=== PATIENT | female | born 1965 | race African-American/Black ===

== ENCOUNTER 2023-09-16 09:51 | Emergency (ER) | payer MEDICARE, MEDICAID ==
[~2023-09-16] VITALS: Ht 160 cm; Wt 76.6 kg
[~2023-09-16 09:51] MED LIST: ASPI81CH43 PO; ATOR20TA50 PO; ENAL1TAB42 PO; GABA800T97 PO; HYDR-531 PO; NIFE1TAB31 PO; PANT40T PO; PROZAC PO; QUET25TA37; TIZA4TAB9 PO
[2023-09-16] MEDS: LACTATED RINGER'S 2,000 ML IV ONE (11:22)
[2023-09-16 11:23] VITALS: BP 110/70; TEMP 97.9
[2023-09-16 11:26] VITALS: PULSE 75; RESP 18; O2SAT 99
[2023-09-16 11:28] LABS: Amphetamine Screen, Urine Neg (NEGATIVE)
[2023-09-16 11:29] LABS: Barbiturate Scree,Urine Neg (NEGATIVE); Benzodiazephine Screen, Urine Neg (NEGATIVE); Cannabinoid Screen, Urine Neg (NEGATIVE); Cocaine Screen, Urine Pos (NEGATIVE); Opiate Scree,Urine Neg (NEGATIVE); Phencyclidine Screen, Urine Neg (NEGATIVE)
[2023-09-16 11:30] LABS: Basophils # (auto) 0.1 10 ^3/uL (0-0.2); Basophils % (auto) 0.5 % (0.0-2.0); Eosinophils # (auto) 0 10 ^3/uL (0-0.8); Eosinophils % (auto) 0.1 % (0.0-7.0); Hematocrit 36.8 % (36.0-46.0); Hemoglobin 11.4 g/dL (12.2-16.2); Lymphocytes # (auto) 1.7 10 ^3/uL (0.4-5.4); Lymphocytes % (auto) 14.6 % (10.0-50.0); Mean Corpuscular Hemoglobin 27.2 pg (28.0-32.0); Mean Corpuscular Hgb Conc. 31.1 g/dL (32.0-36.0); Mean Corpuscular Volume 87.5 fL (80.0-100.0); Monocytes # (auto) 0.4 10 ^3/uL (0-1.3); Monocytes % (auto) 3.4 % (0.0-12.0); Neutrophils # (auto) 9.7 10 ^3/uL (1.6-8.6); Neutrophils % (auto) 81.4 % (37.0-80.0); Nucleated Red Blood Cells % 0.1 %; White Blood Cell 11.9 10^3/uL (4.4-10.8)
[2023-09-16 11:41] LABS: Urine Bacteria NONE SEEN /hpf (None Seen); Urine Blood Negative /uL (Negative); Urine Clarity Clear (Clear); Urine Color Colorless (Yellow); Urine Protein, UAD 1+ (Negative); Urine Specific Gravity 1.025 (1.001-1.035); Urine Urobilinogen Normal (Negative); Urine WBC 2 /hpf (0 - 5)
[2023-09-16 11:55] LABS: Alanine Aminotransferase 34 U/L (7-40); Albumin 4.2 g/dL (3.2-4.8); Alkaline Phosphatase 110 U/L (46-116); Anion Gap 8 (5-15); Aspartate Aminotransferase 64 U/L (13-40); BUN/Creatinine Ratio 16.3 (10.0-20.0); Blood Urea Nitrogen 13 mg/dL (9-23); Calcium 8.7 mg/dL (8.7-10.4); Carbon Dioxide 21 mmol/L (20-30); Chloride 110 mmol/L (98-107); Glucose 161 mg/dL (74-106); Magnesium 1.8 mg/dL (1.6-2.6); Potassium 4.3 mmol/L (3.5-5.1); Sodium 139 mmol/L (136-145)
[2023-09-16 11:56] LABS: Bilirubin, Total 0.4 mg/dL (0.2-1.0); Total Protein 6.5 g/dL (5.7-8.2)
== END 2023-09-16 12:35 | disposition home or self-care (01) ==
LOC: ER 09:51
DX: E11.9 Type 2 diabetes mellitus without complications (principal); R53.1 Weakness; R42 Dizziness and giddiness; F14.90 Cocaine use, unspecified, uncomplicated; J45.909 Unspecified asthma, uncomplicated; I10 Essential (primary) hypertension; K21.9 Gastro-esophageal reflux disease without esophagitis; E78.5 Hyperlipidemia, unspecified; F17.200 Nicotine dependence, unspecified, uncomplicated; Z91.041 Radiographic dye allergy status; Z79.899 Other long term (current) drug therapy; Z88.8 Allergy status to other drugs, medicaments and biological substances
CPT/HCPCS: 36415; 80053; 80307; 81001; 82010; 82962; 83735; 85025; 93005; 96360

== ENCOUNTER 2025-03-18 09:23 | Inpatient (IN) | payer MEDICARE, MEDICAID ==
[~2025-03-18] VITALS: Ht 160 cm; Wt 71.6 kg
--- NOTE | 2025-03-18 10:56 | ED.PDOC ---
GI ASSESSMENT HPI Comments This is a 59 year old female ELISEO presenting to the ED with chief complaint of abdominal pain. Patient reports that she has been experiencing RUQ abdominal pain since this morning. Patient relays that her pain is a 10/10 at this time. Patient denies any N/V/D, fever, chills, dizziness, or chest pain. Chief Complaint: Abdominal Pain Time Seen by MD: 10:54 Primary Care Provider: OUT OF AREA ([facility] Reviewed Notes: Nurses Notes, Hat Copyist Notes, Medications, Allergies Allergies: Coded Allergies: Iodine (Verified Allergy, Unknown, 02/04/18) Morphine (Verified Allergy, Unknown, 03/18/25) Penicillins (Verified Allergy, Unknown, 03/18/25) Home Meds Active Scripts Aspirin (Asa) 81 Mg Ch, 81 MG PO DAILY, #30 Prov:YANDEL HERNANDEZ MD 02/06/18 Atorvastatin Calcium (ATORVASTATIN CALCIUM) 20 Mg Tab, 10 MG PO HS, #30 TAB Prov:YANDEL HERNANDEZ MD 02/06/18 Pantoprazole Sodium Sesquihydr (Pantoprazole Sodium) 40 Mg Tab, 40 MG PO DAILY, #30 TAB Prov:YANDEL HERNANDEZ MD 02/06/18 Reported Medications Hydrocodone-Acetaminophen (Kiefer 10-325 mg) 1 Tab Tab, 2 TAB PO PRN, TAB 02/04/18 Tizanidine Hydrochloride (Zanaflex) 4 Mg Tab, 2 TAB PO TID, #90 TAB 02/04/18 Enalapril Maleate (Enalapril Maleate) 2.5 Mg Tab, 2.5 MG PO DAILY for 30 Days, MG 02/03/18 Nifedipine (Nifedipine Er) 30 Mg Tab, 1 TAB PO BID, #90 TAB 3 Refills 02/03/18 Gabapentin (Gabapentin) 800 Mg Tab, 800 MG PO BID, TAB 02/03/18 [Prozac] No Conflict Check, 20 MG PO DAILY 12/05/10 Quetiapine Fumerate (Seroquel) 25 Mg Tab, HS 12/05/10 Information Source: Patient, Emergency Med Personnel Mode of Arrival: EMS Timing: Hours Duration: Since onset Prehospital treatment: None Quality: Sharp Vomitus: None Stool: Normal Severity: Moderate Recent: None Recent Hx of: None Pain Location: RUQ Modifying Factors: Nothing Associated sign and symptoms: Abdominal Pain Past Medical History PAST MEDICAL HISTORY: Asthma, DM, GERD, High Lipids, HTN Surgical History: Denies all surgeries 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 Family History Family History: No family hx of DM, No family hx of Heart ugo Social History Smoker: Less Than 1 Pack/Day Alcohol: Occasionally Drugs: Denies Drug Use Lives In: Home Constitutional: denies: chills, diaphoresis, fatigue, fever, malaise, sweats, weakness, others EENTM: denies: blurred vision, double vision, ear bleeding, ear discharge, ear drainage, ear pain, ear ringing, eye pain, eye redness, hearing loss, mouth pain, mouth swelling, nasal discharge, nose bleeding, nose congestion, nose pain, photophobia, tearing, throat pain, throat swelling, voice changes, others Respiratory: denies: cough, hemoptysis, orthopnea, SOB at rest, shortness of breath, SOB with excertion, stridor, wheezing, others Cardiovascular: denies: chest pain, dizzy spells, diaphoresis, Dyspnea on exertion, edema, irregular heart beat, left arm pain, lightheadedness, palpitations, PND, syncope, others Gastrointestinal: reports: abdominal pain; denies: abdomen distended, blood streaked bowels, constipated, diarrhea, dysphagia, difficulty swallowing, hematemesis, melena, nausea, poor appetite, poor fluid intake, rectal bleeding, rectal pain, vomiting, others Genitourinary: denies: abnormal vagina bleeding, burning, dyspareunia, dysuria, flank pain, frequency, hematuria, incontinence, pain, , vagina discharge, urgency, others Neurological: denies: dizziness, fainting, headache, left sided numbness, left sided weakness, numbness, paresthesia, pre-existing deficit, right sided numbness, right sided weakness, seizure, speech problems, tingling, tremors, weakness, others Musculoskeletal: denies: back pain, gout, joint pain, joint swelling, muscle pain, muscle stiffness, neck pain, others Integumetry: denies: bruises, change in color, change in hair/nails, dryness, laceration, lesions, lumps, rash, wounds, others Allergic/Immunocompromised: denies: Difficulty Healing, Frequent Infections, Hives, Itching, others Hematologic/Lymphatic: denies: anemia, blood clots, easy bleeding, easy bruising, swollen glands, others Endocrine: denies: excessive hunger, excessive sweating, excessive thirst, excessive urination, flushing, intolerance to cold, intolerance to heat, unexplained weight gain, unexplained weight loss, others Psychiatric: denies: anxiety, bipolar disorder, depression, hopeless, panic disorder, schizophrenia, sleepless, suicidal, others All Other Systems: Reviewed and Negative Physical Exam General Appearance: No Apparent Distress, Obese, Severe Distress HEENT: Normal ENT Inspection, PERRL/EOMI, Pharynx Normal, TMs Normal Neck: Full Range of Motion, Non-Tender, Normal, Normal Inspection Respiratory: Chest Non-Tender, Lungs Clear, No Accessory Muscle Use, No Respiratory Distress, Normal Breath Sounds Cardiovascular: No Edema, No JVD, No Murmur, No Gallop, Normal Peripheral Pulses, Regular Rate/Rhythm Breast Exam: Deferred Gastrointestinal: Diffuse, Distended, Epigastric, No Organomegaly, No Pulsatile Mass, Normal Bowel Sounds, RUQ, Soft, Tenderness (RUQ) Genitalia: Deferred Pelvic: Deferred Rectal: Deferred Extremities: No calf tenderness, Normal capillary refill, Normal inspection, Normal range of motion, Non-tender, No pedal edema Musculoskeletal : Apperance: Normal Neurologic: Alert, java front end web developer II-XII nml as Tested, No Motor Deficits, Normal Affect, Normal Mood, No Sensory Deficits Cerebellar Function: Normal Reflexes: Normal Skin: Dry, Normal Color, Warm Peripheral Pulses: 1+ carotid (R), 1+ carotid (L) Lymphatic: No Adenopathy EKG EKG : Pulse Rate (adult): 92 [place]: Normal Cardiac Rhythm: NSR Hypertrophy: LAE Was a procedure done? Was a procedure done?: No GI differential Dx Differential Diagnosis: Appendicitis, Cholecystitis, Constipation, Diverticular disease, Gastritis/PUD, Gastroenteritis, Inflammatory BD, Ischemic Bowel, Pancreatitis, UTI, Urolithiasis, Dehydration, Diabetes/ DKA, Drug toxicity, Electrolyte Imbalance, Renal Failure, Mass, Anemia X-Ray, Labs, Meds, VS Vital Signs Date Time Temp Pulse Resp B/P (MAP) Pulse Ox O2 Delivery O2 Flow Rate FiO2 03/18/25 12:08 98 20 175/114 03/18/25 11:41 92 03/18/25 10:05 100 16 182/94 (123) 100 03/18/25 09:28 92 9/3/25 09:23 98.1 97 21 176/105 98 98.1 Lab Test 03/18/25 12:06 03/18/25 11:42 Range/Units Urine Color Light-yellow Yellow Urine Clarity Clear Clear Urine pH 7.0 5.0-9.0 Urine Specific [place] 1.021 1.001-1.035 Urine Protein 1+ H Negative Urine Ketones 3+ H Negative Urine Blood Negative Negative /uL Urine Nitrite Negative Negative Urine Bilirubin Negative Negative Urine Urobilinogen Normal Negative mg/dL Urine Leukocyte Esterase Negative Negative /uL Urine RBC 1 0 - 4 /hpf Urine Microscopic WBC < 1 0-5 /HPF Urine Squamous Epithelial Cells Few <5 /hpf Urine Bacteria None seen None Seen /hpf Urine Yeast (Budding) Occasional None Seen /hpf Urine Glucose 3+ H Normal mg/dL White Blood Count 11.1 H 4.4-10.8 10^3/uL Red Blood Count 5.03 4.0-5.20 10^6/uL Hemoglobin 13.6 12.2-16.2 g/dL Hematocrit 42.1 36.0-46.0 % Mean Corpuscular Volume 83.7 80.0-100.0 fL Mean Corpuscular Hemoglobin 26.9 L 28.0-32.0 pg Mean Corpuscular Hemoglobin Concent 32.2 32.0-36.0 g/dL Red Cell Distribution Width 15.0 H 11.8-14.3 % Platelet Count 375 140-450 10^3/uL Mean Platelet Volume 9.6 6.9-10.8 fL Neutrophils (%) (Auto) 69.5 37.0-80.0 % Lymphocytes (%) (Auto) 22.3 10.0-50.0 % Monocytes (%) (Auto) 7.5 0.0-12.0 % Eosinophils (%) (Auto) 0.1 0.0-7.0 % Basophils (%) (Auto) 0.6 0.0-2.0 % Neutrophils # (Auto) 7.7 1.6-8.6 10 ^3/uL Lymphocytes # (Auto) 2.5 0.4-5.4 10 ^3/uL Monocytes # (Auto) 0.8 0-1.3 10 ^3/uL Eosinophils # (Auto) 0 0-0.8 10 ^3/uL Basophils # (Auto) 0.1 0-0.2 10 ^3/uL Nucleated Red Blood Cells 0.1 % Sodium Level 132 L 136-145 mmol/L Potassium Level 3.3 L 3.5-5.1 mmol/L Chloride Level 93 L 98-107 mmol/L Carbon Dioxide Level 24 20-31 mmol/L Anion Gap 15 5-15 Blood Urea Nitrogen 15 9-23 mg/dL Creatinine 1.13 H 0.550-1.02 mg/dL Glomerular Filtration Rate Calc 55 >90 mL/min BUN/Creatinine Ratio 13.3 10.0-20.0 Serum Glucose 295 H 74-106 mg/dL Calcium Level 10.6 H 8.7-10.4 mg/dL Magnesium Level 1.5 L 1.6-2.6 mg/dL Total Bilirubin 1.6 H 0.2-1.0 mg/dL Aspartate Amino Transferase (AST) 22 13-40 U/L Alanine Aminotransferase (ALT) 15 7-40 U/L Alkaline Phosphatase 131 H 46-116 U/L Total Protein 8.6 H 5.7-8.2 g/dL Albumin 5.2 H 3.2-4.8 g/dL Lipase 38 12-53 U/L Current Medications Medications (Trade) Dose Ordered Sig/Arian Route Start Time Stop Time Status Last Admin Metoclopramide HCl (Reglan Injection) 10 mg ONCE ONCE IV 03/18/25 11:00 03/18/25 11:01 DC 03/18/25 12:03 Sodium Chloride 500 ml @ 500 mls/hr Q1H ONCE IVB 03/18/25 11:00 03/18/25 11:59 DC 03/18/25 12:08 Hydromorphone HCl (Dilaudid Injection) 1 mg ONCE ONCE IV 03/18/25 11:00 03/18/25 11:01 DC 03/18/25 12:08 X-Ray, Labs, Meds, VS Comment SEEN IN THE EMERGENCY DEPARTMENT EVENTFUL PATIENT CAME IN WITH SEVERE ABDOMINAL PAIN BLOOD PRESSURE 176/105 CHEST X-RAY IS NORMAL EKG SHOWS NORMAL SINUS RHYTHM AT 92 WITH LEFT ATRIAL ENLARGEMENT CBC 00859 WITH 69.5% NEUTROPHILS URINE SHOWS 3+ GLUCOSE CMP POTASSIUM IS 3.3 BLOOD SUGAR 295 MAGNESIUM 1.5 LIPASE 3.8 PATIENT WILL BE ADMITTED FOR FURTHER CARE PATIENT DID NOT HAVE AN ID CONTRAST BECAUSE SHE IS ALLERGIC TO IODINE BUT THE RADIOLOGIST IS RECOMMENDING IV CONTRAST FOR THE LIVER Time of 1ST Reevaluation: 11:54 Reevaluation 1ST: Unchanged Time of 2ND Reevaluation: 14:38 Reevaluation 2ND: Unchanged Patient Education/Counseling: Diagnosis, Treatment, Prognosis Family Education/Counseling: Diagnosis, Treatment, Prognosis, No Family Present SEPSIS Sepsis Screen Date sepsis recognized/suspect: Mar 18, 2025 Time Sepsis recognized/suspect: 953 Recent Procedure: No On Antibiotic Therapy: No Respiratory Rate >20: No Heart Rate >90: Yes Temp<36 C (96.8 F) or >38.3 C: No SBP <90 or MAP <65 mmHG: No New Acute Mental Status Change: No Is the patient on CPAP, BIPAP,: No Physician Orders Electrocardigram (03/18/25 09:33) Heplock Iv (03/18/25 10:53) Chest Portable (03/18/25 10:53) Plumber Supervisor (03/18/25 10:53) Blood Pressure (03/18/25 10:53) Ct Ab Pel Wo Con-No Oral Or Iv (03/18/25 10:53) Vital Signs Date Time Temp Pulse Resp B/P (MAP) Pulse Ox O2 Delivery O2 Flow Rate FiO2 03/18/25 12:08 98 20 175/114 03/18/25 11:41 92 03/18/25 10:05 100 16 182/94 (123) 100 03/18/25 09:28 92 03/18/25 09:23 98.1 97 21 176/105 98 98.1 Laboratory Tests Test 03/18/25 11:42 White Blood Count 11.1 10^3/uL (4.4-10.8) H Medications Medications Dose Ordered Sig/Arian Route Start Time Stop Time Status Last Admin Dose Admin Hydromorphone HCl 1 mg ONCE ONCE IV 03/18/25 11:00 03/18/25 11:01 DC 03/18/25 12:08 Metoclopramide HCl 10 mg ONCE ONCE IV 03/18/25 11:00 03/18/25 11:01 DC 03/18/25 12:03 Sodium Chloride 500 ml @ 500 mls/hr Q1H ONCE IVB 03/18/25 11:00 03/18/25 11:59 DC 03/18/25 12:08 Departure 1 Departure Time of Disposition: 14:40 Impression: Primary Impression: Acute abdominal pain Additional Impressions: Acute cholecystitis Uncontrolled hypertension Uncontrolled diabetes mellitus Qualified Codes: E11.65 - Type 2 diabetes mellitus with hyperglycemia Hypokalemia Hypomagnesemia Disposition: ADMITTED INPATIENT Admit to: Tele Condition: Fair Critical Care Note Critical Care Time?: No Stability Stability form required: Yes Heart Score Heart Score: Heart Score Response (Comments) Value History Slightly Suspicious 0 EKG Normal 0 Age 45-64 1 Risk Factors 1 or 2 risk factors 1 Troponin Normal limit 0 Total 2 I personally scribed for TOR MONTES MD ([email or web address]) on 03/18/25 at 10:56. E lectronically submitted by Everardo Btucher ([email or web address]). TOR MONTES MD Mar 18, 2025 10:56
[2025-03-18] MEDS: MORPHINE SULFATE 4 MG/ML SYR/VIAL IV ONE (11:14)
--- NOTE | 2025-03-18 11:22 | DVH ---
EXAM: XY CHEST PORTABLE Indication: Acute abdominal pain Technique: Single frontal view of the chest was obtained Comparison: XR CHEST 1 VIEW on DOS: 10/19/23, XR CHEST 1 VIEW on DOS: 09/17/23, XR CHEST 1 VIEW on DOS: 1 , XR CHEST 1 VIEW on DOS: 04/25/23, XR CHEST 2 VIEWS on DOS: 07/19/21 FINDINGS: Lines and Tubes: None Lungs: No focal consolidation. Pleura: No effusion. No pneumothorax. Cardiomediastinal contours: Unremarkable Bones: No acute osseous abnormality. IMPRESSION: No acute cardiopulmonary disease.
[2025-03-18] MEDS: METOCLOPRAMIDE HCL 5MG/ml INJ 2ml VIAL IV ONE (12:03)
[2025-03-18 12:08] LABS: Hematocrit 42.1 % (36.0-46.0); Hemoglobin 13.6 g/dL (12.2-16.2); Mean Corpuscular Hemoglobin 26.9 pg (28.0-32.0); Mean Corpuscular Volume 83.7 fL (80.0-100.0); Nucleated Red Blood Cells % 0.1 %
[2025-03-18] MEDS: SODIUM CHLORIDE 0.9% 500 ML IVB ONE (12:08)
[2025-03-18] MEDS: HYDROmorphone HCL 2 MG/ML VL/or syr IV ONE (12:08)
[2025-03-18 12:14] LABS: Urine Budding Yeast OCCASIONAL /hpf (None Seen); Urine Protein, UAD 1+ (Negative)
--- NOTE | 2025-03-18 12:22 | DVH ---
Exam: CT CT AB PEL WO CON-NO ORAL OR IV History: Abdominal pain Comparison Study: CT ABD/PEL on DOS: 10/19/23 Technique: Multidetector spiral CT of the abdomen and pelvis was performed from lung bases to pubic s ymphysis. Imaging was performed without intravenous contrast. Coronal and sagittal multiplanar reform ats were obtained from the axial data set by the technologist. Radiation Dose : 1. Abdomen/Pelvis: CTDIvol 10.12 mGy, DLP 474.23 mGy*cm. Findings: Evaluation of vasculature and solid organs is limited due to lack of intravenous contrast use. Lung Bases: Lung bases are clear. Visualized portions of the heart and pericardium are unremarkable. Liver: The liver is normal in size. Diffuse heterogeneous attenuation of the liver parenchyma with l inear low-density foci. Gallbladder and Biliary Tree: The gallbladder is distended. No intrahepatic or extrahepatic biliary d uctal dilatation. Spleen: Unremarkable Pancreas: The pancreas is grossly unremarkable. Adrenal Glands: There is a 3.2 cm hypodense left adrenal nodule. The right adrenal gland is unremark able. Kidneys: Kidneys are unremarkable without calculi or hydronephrosis. GI tract: The stomach is grossly normal in appearance. No evidence of small bowel wall thickening or abnormal dilatation to suggest bowel obstruction. The colon is unremarkable. The appendix is visualiz ed and is normal. Peritoneum/mesentery/retroperitoneum. No evidence of free intraperitoneal air. No ascites. No evidenc e of suspicious lymphadenopathy. Abdominal Wall: Unremarkable. Vasculature: The visualized abdominal aorta is normal in size and caliber. Evaluation of abdominal a nd pelvic vessels is limited due to lack of intravenous contrast. Urinary Bladder: Grossly unremarkable for degree of distention. Pelvic Organs: Unremarkable Musculoskeletal: No aggressive focal bony lesions, acute fractures or dislocation. Posterior instrume nted fusion at L5-S1. IMPRESSION: 1. Heterogeneous appearance of the liver. CT of the abdomen pelvis with IV contrast is strongly recom mended. Differential diagnostic considerations include but not limited to laceration, fatty infiltrat ion or mass. 2. 3.2 cm left adrenal nodule likely reflecting an adenoma. 3. Nonspecific bilateral perinephric fat stranding. 4. Distended gallbladder. HS:Y
[2025-03-18 12:26] LABS: Alanine Aminotransferase 15 U/L (7-40); Albumin 5.2 g/dL (3.2-4.8); Alkaline Phosphatase 131 U/L (46-116); Anion Gap 15 (5-15); BUN/Creatinine Ratio 13.3 (10.0-20.0); Blood Urea Nitrogen 15 mg/dL (9-23); Calcium 10.6 mg/dL (8.7-10.4); Carbon Dioxide 24 mmol/L (20-31); Chloride 93 mmol/L (98-107); Glucose 295 mg/dL (74-106); Lipase 38 U/L (12-53); Magnesium 1.5 mg/dL (1.6-2.6); Potassium 3.3 mmol/L (3.5-5.1); Sodium 132 mmol/L (136-145); Total Protein 8.6 g/dL (5.7-8.2)
[2025-03-18 12:27] LABS: Bilirubin, Total 1.6 mg/dL (0.2-1.0)
[2025-03-18] MEDS ORDERED: MAGNESIUM SULFATE 1GM/100ML 100 ML IV SCH (14:45)
[2025-03-18] MEDS: HYDROcodone-ACET 10/325MG TAB PO ONE (17:26)
[2025-03-18] MEDS: POTASSIUM EFFERVESENT TAB 25 MEQ PO ONE (17:27)
--- NOTE | 2025-03-18 17:30 | DVH ---
INDICATION: Possible liver laceration, distended gallbladder TECHNIQUE: Multiple real-time sonographic images of the abdomen were obtained. COMPARISON: MRI ABDOMEN W on DOS: 10/21/23, CT ABD/PEL on DOS: 10/19/23, CT ABD/PEL on DOS: 10/19/23 FINDINGS: The liver is homogenous in echogenicity. The liver measures 17.98 cm. No intrahepatic bili juju ductal dilatation is noted. A 7.39 x 4.36 x 6.36 mildly hyperechoic area in the right lobe of the liver which appears avascular relation to the surrounding tissue. This may represent area of fatty i nfiltration. It mass-lesion is of clinical concern recommend CT scan of the abdomen and pelvis with contrast. The gallbladder wall measures 0.235 cm and is unremarkable. Multiple mobile gallstones.. The commo n duct measures 0.34 cm and is unremarkable. No pericholecystic fluid is noted. Negative sonographic Mondragon's sign The right kidney measures 9.84 cm. No hydronephrosis. The pancreas is visualized and appears sonographically normal. The visualized portions of the IVC and aorta are grossly unremarkable. IMPRESSION: 1. Multiple gallstones with no gallbladder wall thickening. Negative sonographic mondragon's sign. No di lated common bile duct. 2. Right kidney measures 9.84 cm with no hydronephrosis 3. Mildly hyperechoic area in the right lobe of the liver measuring 7.39 by 4.36 x 6.36 cm. This area appears avascular in relation to the surrounding parenchyma. May represent an area of fatty infiltra tion if of clinical concern recommend CT scan of the abdomen with IV contrast.
--- NOTE | 2025-03-18 19:37 | ECG ---
[facility] Test Date: 2025-03-18 Test Time: 09:28:50 Pat Name: REX BHAKTA Department: [facility] ED Patient ID: [facility]-[id number] Room: 0216 Gender: F Client Delivery Specialist: ER : 1965 Requested By: TOR MONTES Order Number: [id number] Reading MD: Feliberto Conde Measurements Intervals [place] Rate: 92 P: 58 DE: 171 QRS: 16 QRSD: 80 T: 50 QT: 376 QTc: 466 Interpretive Statements Sinus rhythm Probable left atrial enlargement Electronically Signed On 03-19-2025 17:02:37 PDT by Feliberto Conde Please click the below link to view image of tracing.
[2025-03-18] MEDS: InsuLIN REG 1unit/0.01ml Soln (100units/ml) SC ONE (20:36)
[2025-03-18] MEDS ORDERED: ONDANSETRON HCL 4 MG/2 ML VIAL IV PRN (22:00)
[2025-03-18] MEDS ORDERED: DOCUSATE SOD 100 MG CAP PO PRN (22:00)
[2025-03-18] MEDS ORDERED: MORPHINE SULFATE INJ 2 MG/ml SYRG IV PRN (22:00)
[2025-03-19] VITALS (11 sets, daily range): BP systolic 97–123; BP diastolic 56–81; PULSE 59–73; RESP 17–18; TEMP 97.7–98.1; O2SAT 17–100
[2025-03-19] MEDS: PANTOPRAZOLE 40 MG/10 ML VIAL INJ IV ONE (03:08)
[2025-03-19] MEDS: KETOROLAC TROMETH 30 MG/ML 1ML VIAL IV ONE (03:08)
[2025-03-19] MEDS: LACTATED RINGER'S 1,000 ML IV SCH ×2 (03:57→14:30)
--- NOTE | 2025-03-19 04:50 | DVHHPRES ---
History of Present Illness Resident Creating Document: MOISÉS VINES RESIDENT History of Present Illness aTla Nath is a 59-year-old female with past medical history of asthma, diabetes, GERD, hyperlipidemia, hypertension who presented to the ED with chief complaints of diffuse 10/10 abdominal pain mostly in the right upper quadrant and epigastric region, radiating to the back, since Sunday which comes and goes and is increased with water or food intake. Patient also states feeling dizzy, nauseous, has a headache and felt feverish yesterday. Patient denies any vomitings, diarrhea, weight loss, night sweats. Patient states that she has not eaten since 3 days. Patient is admitted for further management. Past surgical history: Lumbar spinal surgery, benign tumor removed from breast, Family history: Liver cancer in mother Personal history smokes 3 cigarettes per day, quit drinking 3 months ago, denies drug use, Lives with: Family PCP: Dr. Davey Review of Systems Constitutional: Yes: Chills, Weakness; No: Fever, Sweats, Malaise, Other Eyes: No: Pain, Vision change, Conjunctivae inflammation, Eyelid inflammation, Other, Redness ENT: No: Ear pain, Ear discharge, Nose pain, Nose discharge, Nose congestion, Mouth pain, Mouth swelling, Throat pain, Throat swelling, Other Respiratory: No: Cough, Dry, Shortness of breath, SOB with excertion, Wheezing, Hemoptysis, Pleuritic Pain, Sputum, Wheezing, Other Cardiovascular: No: Chest Pain, Palpitations, Orthopnea, Paroxysmal Noc. Dyspnea, Edema, Lt Headedness, Other Gastrointestinal: Abdominal Pain; No: Nausea, Vomiting, Diarrhea, Constipation, Melena, Hematochezia, Other Genitourinary: No Dysuria, No Frequency, No Incontinence, No Hematuria, No Retention, No Other Musculoskeletal: No: other, neck pain, shoulder pain, arm pain, back pain, hand pain, leg pain, foot pain Skin: No: Rash, Lesions, Jaundice, Bruising, Other Neurological: No: Weakness, Numbness, Incoordination, Change in speech, Co nfusion, Seizures, Other Allergies: Coded Allergies: Iodine (Verified Allergy, Unknown, 02/04/18) Morphine (Verified Allergy, Unknown, 03/18/25) Penicillins (Verified Allergy, Unknown, 03/18/25) Medications Current Medications Medications Dose Ordered Sig/Arian Route Start Time Stop Time Status Last Admin Dose Admin Ondansetron HCl 4 mg Q4HP PRN IV 03/18/25 22:00 Docusate Sodium 100 mg BIDPRN PRN PO 03/18/25 22:00 Morphine Sulfate 2 mg Q4HPRN PRN IV 03/18/25 22:00 Lactated Ringer's 1,000 ml @ 75 mls/hr [id number] IV 03/18/25 23:45 03/19/25 03:57 75 MLS/HR Ketorolac Tromethamine 15 mg Q6HPRN PRN IV 03/19/25 02:30 03/24/25 02:29 Pantoprazole Sodium 40 mg DAILY IV 03/19/25 10:00 Exam Vital Signs Vital Signs Date Time Temp Pulse Resp B/P (MAP) Pulse Ox O2 Delivery O2 Flow Rate FiO2 03/19/25 01:20 97.7 63 17 101/71 (81) 100 97.7 03/19/25 00:31 Room Air* 0 21 Exam General: Patient alert and oriented in person, place and time. Patient following commands. in moderate distress HEENT: Normocephalic, atraumatic, moist mucous membranes. Respiratory/pulmonary: Clear lungs bilaterally, vesicular murmurs present in almost all lung sr, no associated crackles or wheezes. Cardiovascular: Normal heart sounds S1 and S2 with no associated murmurs. Abdomen: RUQ, and epigastric tenderness, Mondragon'ssign Positive Extremities: There is no peripheral edema present at the lower extremities. Peripheral Pulses: 3+ Radial (R). 3+ Radial (L). 3+ Dorsalis pedis (R). 3+ Dorsalis pedis(L), Skin: No rashes or pruritus, there is no sacral edema present at this time. Neurological: Intact cranial nerves with no focal neurologic deficits. Labs/Xrays Labs Test 03/18/25 20:07 03/18/25 12:06 03/18/25 11:42 Range/Units POC Glucose 374 H 70-106 mg/dl Urine Color Light-yellow Yellow Urine Clarity Clear Clear Urine pH 7.0 5.0-9.0 Urine Specific [place] 1.021 1.001-1.035 Urine Protein 1+ H Negative Urine Ketones 3+ H Negative Urine Blood Negative Negative /uL Urine Nitrite Negative Negative Urine Bilirubin Negative Negative Urine Urobilinogen Normal Negative mg/dL Urine Leukocyte Esterase Negative Negative /uL Urine RBC 1 0 - 4 /hpf Urine Microscopic WBC < 1 0-5 /HPF Urine Squamous Epithelial Cells Few <5 /hpf Urine Bacteria None seen None Seen /hpf Urine Yeast (Budding) Occasional None Seen /hpf Urine Glucose 3+ H Normal mg/dL White Blood Count 11.1 H 4.4-10.8 10^3/uL Red Blood Count 5.03 4.0-5.20 10^6/uL Hemoglobin 13.6 12.2-16.2 g/dL Hematocrit 42.1 36.0-46.0 % Mean Corpuscular Volume 83.7 80.0-100.0 fL Mean Corpuscular Hemoglobin 26.9 L 28.0-32.0 pg Mean Corpuscular Hemoglobin Concent 32.2 32.0-36.0 g/dL Red Cell Distribution Width 15.0 H 11.8-14.3 % Platelet Count 375 140-450 10^3/uL Mean Platelet Volume 9.6 6.9-10.8 fL Neutrophils (%) (Auto) 69.5 37.0-80.0 % Lymphocytes (%) (Auto) 22.3 10.0-50.0 % Monocytes (%) (Auto) 7.5 0.0-12.0 % Eosinophils (%) (Auto) 0.1 0.0-7.0 % Basophils (%) (Auto) 0.6 0.0-2.0 % Neutrophils # (Auto) 7.7 1.6-8.6 10 ^3/uL Lymphocytes # (Auto) 2.5 0.4-5.4 10 ^3/uL Monocytes # (Auto) 0.8 0-1.3 10 ^3/uL Eosinophils # (Auto) 0 0-0.8 10 ^3/uL Basophils # (Auto) 0.1 0-0.2 10 ^3/uL Nucleated Red Blood Cells 0.1 % Sodium Level 132 L 136-145 mmol/L Potassium Level 3.3 L 3.5-5.1 mmol/L Chloride Level 93 L 98-107 mmol/L Carbon Dioxide Level 24 20-31 mmol/L Anion Gap 15 5-15 Blood Urea Nitrogen 15 9-23 mg/dL Creatinine 1.13 H 0.550-1.02 mg/dL Glomerular Filtration Rate Calc 55 >90 mL/min BUN/Creatinine Ratio 13.3 10.0-20.0 Serum Glucose 295 H 74-106 mg/dL Hemoglobin A1c 9.4 H <5.7 % A1C Calcium Level 10.6 H 8.7-10.4 mg/dL Magnesium Level 1.5 L 1.6-2.6 mg/dL Total Bilirubin 1.6 H 0.2-1.0 mg/dL Aspartate Amino Transferase (AST) 22 13-40 U/L Alanine Aminotransferase (ALT) 15 7-40 U/L Alkaline Phosphatase 131 H 46-116 U/L Total Protein 8.6 H 5.7-8.2 g/dL Albumin 5.2 H 3.2-4.8 g/dL Lipase 38 12-53 U/L SEPSIS Sepsis Screen Date sepsis recognized/suspect: Mar 18, 2025 Time Sepsis recognized/suspect: 953 Recent Procedure: No On Antibiotic Therapy: No Respiratory Rate >20: No Heart Rate >90: Yes Temp<36 C (96.8 F) or >38.3 C: No SBP <90 or MAP <65 mmHG: No New Acute Mental Status Change: No Is the patient on CPAP, BIPAP,: No Physician Orders Admit (03/18/25 21:55) Allergies (03/18/25:55) Code Status (03/18/25:55) Ondansetron Hcl (Zofran) (03/18/25 22:00) Docusate Sodium Capsule (Colace Capsule) (03/18/25 22:00) Complete Blood Count (03/19/25 04:00) Comprehensive Metabolic Panel (03/19/25 04:00) Npo (Nothing By Mouth) Diet (03/19/25 Breakfast) Condition: Serious (03/18/25 21:55) Bedrest With Bathroom Privileg (03/18/25 21:55) Morphine Sulfate Injection (03/18/25 22:00) Oxygen By Nasal Cannula (03/18/25:55) Stat Ekg For Chest Pain (03/18/25 21:55) Notify Md Of Changes From Base (03/18/25 21:55) Emergency Dysrhythmia Protocol (03/18/25 21:55) Rhythm Strips Once Every Shift (03/18/25 21:55) Paralegal Instructor For 24 Hours (03/18/25 21:55) * Surgical Consult (03/18/25 ) Drug Screen (03/18/25 23:28) Lactated Ringer's (03/18/25 23:45) Ketorolac Injection (Toradol Injection) (03/19/25 02:30) Pantoprazole (Protonix) (03/19/25 10:00) Prothrombin Time W/ Inr (03/19/25 02:29) Hepatitis B Surface Antigen (03/19/25 03:41) Hepatitis C Antibody (03/19/25 03:41) Metronidazole 500mg/100ml (Flagyl 500mg/ (03/19/25 04:15) Metronidazole 500mg/100ml (Flagyl 500mg/ (03/19/25 06:00) Ciprofloxacin 400mg/200ml (Cipro Iv) (03/19/25 06:00) Ciprofloxacin 400mg/200ml (Cipro Iv) (03/19/25 04:15) Nm Hida Scan (03/19/25 04:08) Vital Signs Date Time Temp Pulse Resp B/P (MAP) Pulse Ox O2 Delivery O2 Flow Rate FiO2 03/19/25 01:20 97.7 63 17 101/71 (81) 100 97.7 03/19/25 01:16 97.7 63 17 101/71 (81) 17 97.7 03/19/25 01:16 97.7 63 17 101/71 (81) 100 97.7 03/19/25 00:53 98.9 74 18 91/63 (72) 98 98.9 03/19/25 00:31 73 18 98 Room Air* 0 21 Medications Medications Dose Ordered Sig/Arian Route Start Time Stop Time Status Last Admin Dose Admin Insulin Human Regular 4 units ONCE ONCE SC 03/18/25 20:15 03/18/25 20:17 DC 03/18/25 20:36 4 UNITS Ketorolac Tromethamine 15 mg ONCE ONCE IV 03/19/25 02:30 03/19/25 02:33 DC 03/19/25 03:08 15 MG Lactated Ringer's 1,000 ml @ 75 mls/hr [id number] IV 03/18/25 23:45 03/19/25 03:57 75 MLS/HR Pantoprazole Sodium 40 mg ONCE ONCE IV 03/19/25 02:30 03/19/25 02:33 DC 03/19/25 03:08 40 MG Assessment/Plan Assessment/Plan # Intractable abdominal pain # symptomatic cholelithiasis # rule out acute cholecystitis # hyper bilirubinemia - CT abdomen showed Heterogeneous appearance of the liver. CT of the abdomen pelvis with IV contrast is strongly recommended. Differential diagnostic considerations include but not limited to laceration, fatty infiltration or mass. 3.2 cm left adrenal nodule likely reflecting an adenoma. Nonspecific bilateral perinephric fat stranding. Distended gallbladder. 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 Alcala , patient and nurse Plan discussed with: Patient My Orders Orders - MOISÉS VINES RESIDENT Procedure Category Date Status Time Admit ADMIT 03/18/25 Transmitted 21:55 Allergies PARK 03/18/25 In Process 21:55 Code Status CODE 03/18/25 Transmitted 21:55 Ondansetron Hcl PHA 03/18/25 In Process (Zofran) 22:00 Docusate Sodium PHA 03/18/25 In Process Capsule (Colace 22:00 Complete Blood Count LAB 03/19/25 Logged 04:00 Comprehensive LAB 03/19/25 Logged Metabolic Panel 04:00 Npo (Nothing By DIET 03/19/25 Transmitted Mouth) Diet Breakfast Condition: Serious PARK 03/18/25 In Process 21:55 Bedrest With Bathroom PARK 03/18/25 In Process Privileg 21:55 Morphine Sulfate PHA 03/18/25 In Process Injection 22:00 Oxygen By Nasal RT 03/18/25 Transmitted Cannula 21:55 Stat Ekg For Chest PARK 03/18/25 In Process Pain 21:55 Notify Md Of Changes PARK 03/18/25 In Process From Base 21:55 Emergency Dysrhythmia PARK 03/18/25 In Process Protocol 21:55 Rhythm Strips Once PARK 03/18/25 In Process Every Shift 21:55 Paralegal Instructor For PARK 03/18/25 In Process 24 Hours 21:55 * Surgical Consult CONS 03/18/25 Transmitted Drug Screen LAB 03/18/25 Logged 23:28 Lactated Ringer's PHA 03/18/25 In Process 23:45 Ketorolac Injection PHA 03/19/25 In Process (Toradol Injection) 02:30 Pantoprazole PHA 03/19/25 In Process (Protonix) 10:00 Prothrombin Time W/ LAB 03/19/25 Logged INR 02:29 Hepatitis B Surface LAB 03/19/25 Logged Antigen 03:41 Hepatitis C Antibody LAB 03/19/25 Logged 03:41 Metronidazole PHA 03/19/25 Logged 500mg/100ml (Flagyl 04:15 Metronidazole PHA 03/19/25 Logged 500mg/100ml (Flagyl 06:00 Ciprofloxacin PHA 03/19/25 Logged 400mg/200ml (Cipro Iv) 06:00 Ciprofloxacin PHA 03/19/25 Logged 400mg/200ml (Cipro Iv) 04:15 Nm Hida Scan NM 03/19/25 Logged 04:08 Date of Service: Mar 19, 2025 Billing Provider: LITA ALCLAA MD Common Visit Codes: 10057-[id number] INP/OBS CARE (HIGH) Secondary Visit Codes: 19588-[id number] CARE PLAN 30 MINUTES MOISÉS VINES Mar 19, 2025 04:49
[2025-03-19 05:42] LABS: Hematocrit 32.7 % (36.0-46.0); Hemoglobin 10.7 g/dL (12.2-16.2); Mean Corpuscular Hemoglobin 27.1 pg (28.0-32.0); Mean Corpuscular Volume 83.2 fL (80.0-100.0); Nucleated Red Blood Cells % 0.1 %
[2025-03-19] MEDS: MAGNESIUM OXIDE 400 MG TAB PO ONE (05:44)
[2025-03-19 05:57] LABS: INR 1.05 (0.9-1.15); Prothrombin Time 11.1 sec (9.3-11.8)
[2025-03-19] MEDS: CIPROFLOXACIN 400MG/200ML 200 ML IV ONE (06:00)
[2025-03-19 06:04] LABS: Alanine Aminotransferase 10 U/L (7-40); Albumin 4.0 g/dL (3.2-4.8); Alkaline Phosphatase 94 U/L (46-116); Anion Gap 11 (5-15); BUN/Creatinine Ratio 12.8 (10.0-20.0); Bilirubin, Total 1.1 mg/dL (0.2-1.0); Carbon Dioxide 27 mmol/L (20-31); Total Protein 6.5 g/dL (5.7-8.2)
[2025-03-19 06:09] LABS: Blood Urea Nitrogen 28 mg/dL (9-23); Chloride 95 mmol/L (98-107); Glucose 307 mg/dL (74-106); Potassium 3.4 mmol/L (3.5-5.1); Sodium 133 mmol/L (136-145)
[2025-03-19 06:21] LABS: Calcium 8.7 mg/dL (8.7-10.4)
--- NOTE | 2025-03-19 09:44 | DVHPNRES ---
Progress Note Date Seen: Mar 19, 2025 Resident Creating Document: GENARO ROLDAN RESIDENT Medical Necessity Reason Pt with a Central, PICC or Fol: No Subjective Review of Systems Patient is 59 years old female with past medical history of hypertension, diabetes mellitus type 2, hyperlipidemia, asthma, GERD came with a complaint of abdominal pain. As per patient she started having abdominal pain 3 days before, sudden onset, but more on right upper abdomen and epigastric region, 10/10, radiating to the back and upper chest, Unasyn, relieved with some pain medication. Pain was associated nausea and vomiting 3 times, no blood, patient reported feeling chilled but no record of temperature. Patient denied any dysuria, constipation or diarrhea, shortness of breaths or chest pain, acute joint redness or swelling. Initial lab workup revealed leukocytosis with WBC 11.1, sodium 133, potassium 3.3, serum creatinine 1.13, BUN 15, GFR 55, magnesium 1.5, bilirubin 1.6, alkaline phosphatase 131, AST/ALT with a normal limit, hemoglobin A1c 9.4. CT abdomen and pelvis revealed- Heterogeneous appearance of the liver. 3.2 cm left adrenal nodule likely reflecting an adenoma. Nonspecific bilateral perinephric fat stranding.Distended gallbladder. Ultrasound of the abdomen revealed-Multiple gallstones with no gallbladder wall thickening. Negative sonographic lopez's sign. No dilated common bile duct. Right kidney measures 9.84 cm with no hydronephrosisMildly hyperechoic area in the right lobe of the liver measuring 7.39 by 4.36 x 6.36 cm. This area appears avascular in relation to the surrounding parenchyma. May represent an area of fatty infiltration. Past surgical history: Lumbar spinal surgery, benign tumor removed from breast, Family history: Liver cancer in mother Personal history smokes 3 cigarettes per day, quit drinking 3 months ago, denies drug use, Allergy- iodine, morphine, penicillin Patient was seen today at the bedside. Patient Cardiovascular- deny acute chest pain or shortness of breath or cough or palpitation Respiratory denies cough or short of breath or wheezing Gastrointestinal- denies any rectal bleeding, nausea or vomiting Musculoskeletal-denies acute joint swelling or tenderness or redness Neurological- denies acute dysarthria, dysphagia, change in vision Psychiatry- denies depression or SI or HI Skin- denies acute rash or purpura Patient was seen today at bedside, labs and chart reviewed. Patient complained of ongoing mild abdominal pain, mild diffuse tenderness on palpitation of the abdomen. Pending HIDA scan and surgery consult. Ordered ultrasound of the aorta to rule out aortic dissection, repeat BNP, CBC. Dr. Bunn ordered MRI of the abdomen without contrast. Objective vital signs Vital Sign Date Time Temp Pulse Resp B/P (MAP) Pulse Ox O2 Delivery O2 Flow Rate FiO2 03/19/25 09:08 97.9 59 18 102/63 (76) 98 97.9 03/19/25 01:36 Room Air* 0 21 Total Intake and Output 03/18/25 03/18/25 03/19/25 15:00 23:00 07:00 Intake Total 0 ml Balance 0 ml medications Current Medications Medications Dose Ordered Sig/Arian Route Start Time Stop Time Status Last Admin Dose Admin Ondansetron HCl 4 mg Q4HP PRN IV 03/18/25 22:00 Docusate Sodium 100 mg BIDPRN PRN PO 03/18/25 22:00 Morphine Sulfate 2 mg Q4HPRN PRN IV 03/18/25 22:00 Lactated Ringer's 1,000 ml @ 75 mls/hr [id number] IV 03/18/25 23:45 03/19/25 03:57 75 MLS/HR Ketorolac Tromethamine 15 mg Q6HPRN PRN IV 03/19/25 02:30 03/24/25 02:29 Pantoprazole Sodium 40 mg DAILY IV 03/19/25 10:00 Metronidazole 100 ml @ 100 mls/hr Q8H IV 03/19/25 12:00 Ciprofloxacin 200 ml @ 200 mls/hr Q8H IV 03/19/25 12:00 Aspirin 81 mg DAILY PO 03/19/25 10:00 Enalapril Maleate 2.5 mg DAILY PO 03/19/25 10:00 Nifedipine 30 mg BID PO 03/19/25 10:00 Gabapentin 400 mg BID PO 03/19/25 10:00 Atorvastatin Calcium 40 mg HS PO 03/19/25 22:00 Heparin Sodium (Porcine) 5,000 units Q12HR SC 03/19/25 10:00 Examination General examination- awake, alert, oriented HEENT- PEERLA, no acute nasal discharge Cardiovascular- S1-S2 audible, rate and rhythm regular, no murmur Respiratory- CTAB, no wheeze or rhonchi Gastrointestinal-mild diffuse abdominal tenderness+, bowel sound+. Nondistended Musculoskeletal-no acute joint swelling or tenderness or redness Lower extremity- Neurological- cranial nerves intact, no acute dysarthria or dysphagia Psychiatry- denies depression or SI or HI Skin- no acute rash or purpura laboratory and microbiology Laboratory Tests 03/19/25 04:50 Test 03/19/25 04:50 Range/Units Serum Glucose 307 H 74-106 mg/dL Labs and/or images reviewed: Labs reviewed by me, Image(s) reviewed by me Problem List/Assessment/Plan Problem List/Assessment/Plan Assessment and plan # Acute abdominal pain likely due to Acute cholecystitis # Cholelithiasis # ruled out acute pancreatitis Rule out aortic dissection - CT abdomen and pelvis revealed- Heterogeneous appearance of the liver. 3.2 cm left adrenal nodule likely reflecting an adenoma. Nonspecific bilateral perinephric fat stranding.Distended gallbladder. -Ultrasound of the abdomen revealed-Multiple gallstones with no gallbladder wall thickening. Negative sonographic lopez's sign. No dilated common bile duct. May represent an area of fatty infiltration. -pending HIDA scan -continue ciprofloxacin and metronidazole as prescribed -continue pantoprazole IV 41 daily -surgery consult- Dr. Bunn ordered MRI of the abdomen without contrast-A 3.3 cm left adrenal adenoma.Cholelithiasis. Pancreatic tail cystic lesion measuring 8 mm - ultrasound of the aorta -no evidence of abdominal aortic aneurysm -full liquid diet # JP likely due to VMN -continue IV fluid as prescribed - Monitor labs # Hypertension -resumed home medication nifedipine and enalapril # Diabetes mellitus type 2 -continue insulin Lantus as prescribed -insulin sliding scale mild as prescribed # hyperlipidemia -atorvastatin 40 mg p.o. q.h.s. # GERD -continue pantoprazole 40 mg IV daily # transaminitis -monitor hepatic panel # hypokalemia mild -replenished -monitor BMP # hyponatremia mild asymptomatic -monitor BMP # Asthma no acute exacerbation -nebulization PRN #3.3 cm left adrenal adenoma -no acute symptom -follow up outpatient with the primary care physician #Pancreatic tail cystic lesion measuring 8 mm -follow up outpatient with the primary care physician Goals of care, Code status ; discussed with >15 minutes PUD prophylaxis: Pantoprazole DVT prophylaxis: Heparin Plan discussed with Dr. Doran , nursing staff, Total time spent on patient evaluation, chart review, assessment and plan, discussion discussion >35 minutes Plan discussed with: Patient, Other (RN) My Orders My Orders Orders - GENARO ROLDAN Procedure Category Date Status Time Heparin Sodium PHA 03/19/25 In Process (Porcine) 10:00 Thyroid Stimulating LAB 03/19/25 Logged Hormone 08:12 Vitamin B12 LAB 03/19/25 Logged 08:12 Vitamin D, 25-Hydroxy LAB 03/19/25 Logged 08:12 Folate (Folic Acid) LAB 03/19/25 Logged 08:12 Transfer Orders XFER 03/19/25 Verified 09:00 Date of Service: Mar 19, 2025 Billing Provider: OSCAR RODRIGUEZ MD Common Visit Codes: [id number] INP/OBS CARE(HIGH) GENARO ROLDAN Mar 19, 2025 09:44 PRANAY CRANE Mar 20, 2025 14:25 OSCAR RODRIGUEZ MD Mar 23, 2025 01:04
[2025-03-19] MEDS ORDERED: DEXTROSE (50%) 50ML SYRG IV PRN ×2 (09:45→17:30)
[2025-03-19] MEDS: ENALAPRIL MALEATE 2.5 MG TAB PO SCH (10:00)
[2025-03-19] MEDS: HEPARIN SODIUM (PORCINE) 5000 UNITS/ML 1ML VIAL SC SCH (10:00)
[2025-03-19] MEDS: SODIUM CHLORIDE 0.9% 1,000 ML IV ONE (11:00)
[2025-03-19] MEDS: KETOROLAC TROMETH 30 MG/ML 1ML VIAL IV PRN (11:03)
[2025-03-19] MEDS: PANTOPRAZOLE 40 MG/10 ML VIAL INJ IV SCH (11:03)
[2025-03-19] MEDS: GABAPENTIN 400 MG CAP PO SCH (11:04)
[2025-03-19 11:46] LABS: Hematocrit 32.6 % (36.0-46.0); Hemoglobin 10.6 g/dL (12.2-16.2); Mean Corpuscular Hemoglobin 27.3 pg (28.0-32.0); Mean Corpuscular Volume 84.0 fL (80.0-100.0); Nucleated Red Blood Cells % 0.0 %
[2025-03-19] MEDS: CIPROFLOXACIN 400MG/200ML 200 ML IV SCH (12:00)
[2025-03-19] MEDS: ACCU-CHEK COMFORT CURVE STRIP VI SCH ×2 (12:00→17:46)
[2025-03-19 12:06] LABS: Potassium 3.6 mmol/L (3.5-5.1)
[2025-03-19 12:07] LABS: Anion Gap 11 (5-15); Carbon Dioxide 26 mmol/L (20-31)
[2025-03-19 12:08] LABS: Chloride 97 mmol/L (98-107); Sodium 134 mmol/L (136-145)
[2025-03-19 12:13] LABS: BUN/Creatinine Ratio 13.9 (10.0-20.0)
[2025-03-19 12:15] LABS: Blood Urea Nitrogen 30 mg/dL (9-23); Calcium 8.3 mg/dL (8.7-10.4); Glucose 314 mg/dL (74-106)
[2025-03-19] MEDS: InsuLIN REG 1unit/0.01ml Soln (100units/ml) SC SCH ×2 (12:24→18:03)
--- NOTE | 2025-03-19 12:58 | DVH ---
Procedure: PA NM HIDA SCAN Exam Date: 03/19/2025 10:02 AM Clinical History: rule out Acute cholecystitis Comparison Study: None Nuclear Medicine Hepatobiliary Scan. Technique: Following the intravenous administration of 6 mCi of technetium 99m labeled Choletec multiple planar abdominal planar images were obtained in anterior projection in 1 minute intervals for 27 minutes . R ight lateral images were obtained at 30 minutes after injection. Findings: The liver appears grossly normal in size. There is no abnormal persistence of the cardiac or blood po ol activity. There is prompt visualization of the gallbladder and excretion of activity into the smal l bowel. Impression: Patent cystic duct.
[2025-03-19] MEDS: LORazepam 2MG/ML-1ML VIAL IV ONE (13:31)
--- NOTE | 2025-03-19 13:38 | DVH ---
ULTRASOUND AORTIC CLINICAL INDICATION: Rule out aortic dissection due to abdominal pain TECHNIQUE: Multiple sonographic images of the abdominal aorta were obtained. FINDINGS: The aorta measures 2 cm in the AP diameter . There is no evidence for atheroscleroti c disease. There is no periaortic fluid. IMPRESSION: 1. no evidence for abdominal aortic aneurysm.
--- NOTE | 2025-03-19 14:48 | DVH ---
PROCEDURE: MRI MRI ABDOMEN NO CONTRAST Indication: LIVER MASS/ NO CONTRAST LABS OFF..ABNORMAL CT COMPARISON: 03/18/2025 TECHNIQUE: Multiplanar multisequence images of the brain are obtained. FINDINGS: Limited evaluation without contrast. Examination degraded by motion Left adrenal nodule measuring 3.3 cm. This drops signal on out of phase imaging. Spleen unremarkable. Pancreatic tail cystic lesion measuring 8 mm. Kidneys demonstrate no hydronephrosis. Cholelithiasis. Normal caliber common bile duct measuring 3 mm. No T2 hyperintense lesions in the liver seen. Hepatic steatosis Stomach is relatively nondistended. Colonic diverticula. Lumbosacral fusion hardware. IMPRESSION: Limited evaluation without contrast. Examination also degraded by motion. No T2 hyperintense lesions within the liver. No discernible hepatic mass. Recommend multiphasic MRI abdomen to further evaluate. Hepatic steatosis. A 3.3 cm left adrenal adenoma. Cholelithiasis. Pancreatic tail cystic lesion measuring 8 mm. Differential considerations include cyst, pseudocyst, I PMN, cystic neoplasm. Recommend MRI abdomen with and without contrast to further evaluate. Other findings as described.
--- NOTE | 2025-03-19 16:15 | DVHINCON2 ---
Date of service: Mar 19, 2025 Family History: Diabetes mellitus G8 MOTHER G8 SISTER FH: heart attack G8 FATHER Allergies: Coded Allergies: Iodine (Verified Allergy, Unknown, 02/04/18) Morphine (Verified Allergy, Unknown, 03/18/25) Penicillins (Verified Allergy, Unknown, 03/18/25) Home Meds Active Scripts Aspirin (Asa) 81 Mg Ch, 81 MG PO DAILY, #30 Prov:YANDEL HERNANDEZ MD 02/06/18 Atorvastatin Calcium (ATORVASTATIN CALCIUM) 20 Mg Tab, 10 MG PO HS, #30 TAB Prov:YANDEL HERNANDEZ MD 02/06/18 Pantoprazole Sodium Sesquihydr (Pantoprazole Sodium) 40 Mg Tab, 40 MG PO DAILY, #30 TAB Prov:YANDEL HERNANDEZ MD 02/06/18 Reported Medications Hydrocodone-Acetaminophen ([place] 10-325 mg) 1 Tab Tab, 2 TAB PO PRN, TAB 02/04/18 Tizanidine Hydrochloride (Zanaflex) 4 Mg Tab, 2 TAB PO TID, #90 TAB 02/04/18 Enalapril Maleate (Enalapril Maleate) 2.5 Mg Tab, 2.5 MG PO DAILY for 30 Days, MG 02/03/18 Nifedipine (Nifedipine Er) 30 Mg Tab, 1 TAB PO BID, #90 TAB 3 Refills 02/03/18 Gabapentin (Gabapentin) 800 Mg Tab, 800 MG PO BID, TAB 02/03/18 [Prozac] No Conflict Check, 20 MG PO DAILY 12/05/10 Quetiapine Fumerate (Seroquel) 25 Mg Tab, HS 12/05/10 Current Medications Current Medications Medications (Trade) Dose Ordered Sig/Arian Route PRN Reason Start Time Stop Time Status Last Admin Ondansetron HCl (Zofran) 4 mg Q4HP PRN IV NAUSEA / VOMITING 03/18/25 22:00 Docusate Sodium (Colace Capsule) 100 mg BIDPRN PRN PO FOR CONSTIPATION 03/18/25 22:00 Morphine Sulfate 2 mg Q4HPRN PRN IV SEVERE PAIN (7-10 PAIN SCALE) 03/18/25 22:00 Lactated Ringer's 1,000 ml @ 75 mls/hr [id number] IV 03/18/25 23:45 03/19/25 14:27 DC 03/19/25 03:57 Ketorolac Tromethamine (Toradol Injection) 15 mg Q6HPRN PRN IV SEVERE PAIN (7-10 PAIN SCALE) 03/19/25 02:30 03/24/25 02:29 03/19/25 11:03 Pantoprazole Sodium (Protonix) 40 mg DAILY IV 03/19/25 10:00 03/19/25 11:03 Metronidazole 100 ml @ 100 mls/hr Q8H IV 03/19/25 12:00 Ciprofloxacin 200 ml @ 200 mls/hr Q8H IV 03/19/25 12:00 Aspirin 81 mg DAILY PO 03/19/25 10:00 03/19/25 11:04 Enalapril Maleate (Vasotec Tablet) 2.5 mg DAILY PO 03/19/25 10:00 Nifedipine (Procardia Xl (Time-Release)) 30 mg BID PO 03/19/25 10:00 Gabapentin (Neurontin Capsule) 400 mg BID PO 03/19/25 10:00 03/19/25 11:04 Atorvastatin Calcium (Lipitor) 40 mg HS PO 03/19/25 22:00 Heparin Sodium (Porcine) 5,000 units Q12HR SC 03/19/25 10:00 Insulin Glargine (Lantus) 20 units BID@0700,2200 SC 03/19/25 22:00 Diagnostic Test (Pha) (Accu-Chek Comfort Curve T) 1 strip Q6HR 03/19/25 12:00 03/19/25 12:00 Insulin Human Regular (InsuLIN R) Q6HR SC 03/19/25 12:00 03/19/25 12:24 Dextrose 50 ml UD PRN IV Blood Sugar LESS THAN 60 03/19/25 09:45 Lactated Ringer's 1,000 ml @ 110 mls/hr Q9H6M IV 03/19/25 14:30 Vital Signs Vital Signs Date Time Temp Pulse Resp B/P (MAP) Pulse Ox O2 Delivery O2 Flow Rate FiO2 03/19/25 13:00 98.1 59 18 123/81 (95) 98 98.1 03/19/25 08:00 Room Air* 0 21 Labs/Diagnostic Data Labs Test 03/19/25 12:15 03/19/25 11:20 03/19/25 04:50 03/18/25 12:06 Range/Units POC Glucose 346 H 70-106 mg/dl White Blood Count 9.8 4.4-10.8 10^3/uL Red Blood Count 3.88 L 4.0-5.20 10^6/uL Hemoglobin 10.6 L 12.2-16.2 g/dL Hematocrit 32.6 L 36.0-46.0 % Mean Corpuscular Volume 84.0 80.0-100.0 fL Mean Corpuscular Hemoglobin 27.3 L 28.0-32.0 pg Mean Corpuscular Hemoglobin Concent 32.5 32.0-36.0 g/dL Red Cell Distribution Width 14.9 H 11.8-14.3 % Platelet Count 272 140-450 10^3/uL Mean Platelet Volume 9.3 6.9-10.8 fL Neutrophils (%) (Auto) 66.2 37.0-80.0 % Lymphocytes (%) (Auto) 23.6 10.0-50.0 % Monocytes (%) (Auto) 8.7 0.0-12.0 % Eosinophils (%) (Auto) 1.2 0.0-7.0 % Basophils (%) (Auto) 0.3 0.0-2.0 % Neutrophils # (Auto) 6.5 1.6-8.6 10 ^3/uL Lymphocytes # (Auto) 2.3 0.4-5.4 10 ^3/uL Monocytes # (Auto) 0.9 0-1.3 10 ^3/uL Eosinophils # (Auto) 0.1 0-0.8 10 ^3/uL Basophils # (Auto) 0 0-0.2 10 ^3/uL Nucleated Red Blood Cells 0.0 % Sodium Level 134 L 136-145 mmol/L Potassium Level 3.6 3.5-5.1 mmol/L Chloride Level 97 L 98-107 mmol/L Carbon Dioxide Level 26 20-31 mmol/L Anion Gap 11 5-15 Blood Urea Nitrogen 30 H 9-23 mg/dL Creatinine 2.16 H 0.550-1.02 mg/dL Glomerular Filtration Rate Calc 25 >90 mL/min BUN/Creatinine Ratio 13.9 10.0-20.0 Serum Glucose 314 H 74-106 mg/dL Calcium Level 8.3 L 8.7-10.4 mg/dL Magnesium Level 1.4 L 1.6-2.6 mg/dL Vitamin B12 Level 834 211-911 pg/mL Vitamin D 25-Hydroxy 11.9 L 30.0-100 ng/mL Folic Acid 13.49 >5.38 ng/mL Thyroid Stimulating Hormone (TSH) 0.97 0.55-4.78 uIU/mL Prothrombin Time 11.1 9.3-11.8 sec Prothrombin Time INR 1.05 0.9-1.15 Total Bilirubin 1.1 H 0.2-1.0 mg/dL Aspartate Amino Transferase (AST) 15 13-40 U/L Alanine Aminotransferase (ALT) 10 7-40 U/L Alkaline Phosphatase 94 46-116 U/L Total Protein 6.5 5.7-8.2 g/dL Albumin 4.0 3.2-4.8 g/dL Urine Color Light-yellow Yellow Urine Clarity Clear Clear Urine pH 7.0 5.0-9.0 Urine Specific [place] 1.021 1.001-1.035 Urine Protein 1+ H Negative Urine Ketones 3+ H Negative Urine Blood Negative Negative /uL Urine Nitrite Negative Negative Urine Bilirubin Negative Negative Urine Urobilinogen Normal Negative mg/dL Urine Leukocyte Esterase Negative Negative /uL Urine RBC 1 0 - 4 /hpf Urine Microscopic WBC < 1 0-5 /HPF Urine Squamous Epithelial Cells Few <5 /hpf Urine Bacteria None seen None Seen /hpf Urine Yeast (Budding) Occasional None Seen /hpf Urine Glucose 3+ H Normal mg/dL Test 03/18/25 11:42 Range/Units Hemoglobin A1c 9.4 H <5.7 % A1C Lipase 38 12-53 U/L Assessment 59 year old female with recurring abdominal pains and gallstones, abdomen tender, bilirubin normal ,imaging reviewed, laparoscopic possibly open cholecystectomy, risks and complications explained in detail Plan discussed with: Patient SARAI HENSON MD Mar 19, 2025 16:15
[2025-03-19] MEDS: MAGNESIUM SULFATE 1GM/100ML 100 ML IV SCH (17:59)
[2025-03-19] MEDS: ATORVASTATIN 20 MG TAB PO SCH (21:07)
[2025-03-19] MEDS: INSULIN LANTUS (GLARGINE) 1 /0.01ml (100units/ml) SC SCH (21:14)
[2025-03-20] VITALS (9 sets, daily range): BP systolic 110–162; BP diastolic 67–86; PULSE 55–78; RESP 16–20; TEMP 97.4–98.5; O2SAT 91–100
[2025-03-20] MEDS: MAGNESIUM SULFATE 1GM/100ML 100 ML IV ONE (02:13)
[2025-03-20 08:13] LABS: Hematocrit 30.7 % (36.0-46.0); Hemoglobin 10.3 g/dL (12.2-16.2); Mean Corpuscular Hemoglobin 28.2 pg (28.0-32.0); Mean Corpuscular Volume 84.3 fL (80.0-100.0); Nucleated Red Blood Cells % 0.0 %
[2025-03-20 08:16] LABS: Alanine Aminotransferase 18 U/L (7-40); Albumin 3.6 g/dL (3.2-4.8); Alkaline Phosphatase 88 U/L (46-116); Anion Gap 11 (5-15); BUN/Creatinine Ratio 26.8 (10.0-20.0); Carbon Dioxide 24 mmol/L (20-31); Chloride 101 mmol/L (98-107); Magnesium 2.1 mg/dL (1.6-2.6); Potassium 3.7 mmol/L (3.5-5.1); Sodium 136 mmol/L (136-145); Total Protein 5.8 g/dL (5.7-8.2)
[2025-03-20 08:17] LABS: Bilirubin, Total 0.9 mg/dL (0.2-1.0)
[2025-03-20 08:21] LABS: Blood Urea Nitrogen 34 mg/dL (9-23); Calcium 8.5 mg/dL (8.7-10.4); Glucose 170 mg/dL (74-106)
[2025-03-20] MEDS: FAMOTIDINE (10MG/ML) 2ML VL IV ONE (09:21)
[2025-03-20] MEDS ORDERED: MIDAZOLAM HCL 2MG/2ML 2ml VIAL (1mg/ml) ONE (09:30)
[2025-03-20] MEDS ORDERED: KETAMINE 50mg/ML 1ml syringe ONE (09:30)
[2025-03-20] MEDS ORDERED: fentaNYL CITRATE 100 MCG/2 ML VL ONE (09:30)
[2025-03-20] MEDS ORDERED: ONDANSETRON HCL 4 MG/2 ML VIAL ONE (09:31)
[2025-03-20] MEDS ORDERED: LIDOCAINE 2%HCL (LOCAL ANESTH.) INJ 20ML MDV ONE (09:31)
[2025-03-20] MEDS ORDERED: GLYCOPYRROLATE 0.2 MG/ML 1ML VIAL ONE (09:31)
[2025-03-20] MEDS ORDERED: PHENYLEPHRINE HCL 10 MG/ML VL ONE (09:31)
[2025-03-20] MEDS ORDERED: HYDROmorphone HCL 2 MG/ML VL/or syr ONE (09:31)
[2025-03-20] MEDS ORDERED: SUGAMMADEX 200mg/2ml Vial (100MG/ML) IV ONE (09:31)
[2025-03-20] MEDS ORDERED: ROCURONIUM 10MG/ML 10ML VIAL IV ONE (09:31)
[2025-03-20] MEDS ORDERED: KETOROLAC TROMETH 30 MG/ML 1ML VIAL ONE (09:31)
[2025-03-20] MEDS: BUPIVACAINE 0.5% P/F INJ 10 ML VIAL ONE (10:06)
[2025-03-20] MEDS: LIDOCAINE W/ EPINEPHRINE 1% 20ML VIAL ONE (10:06)
[2025-03-20] MEDS ORDERED: ONDANSETRON HCL 4 MG/2 ML VIAL IV PRN ×2 (10:15→10:45)
[2025-03-20] MEDS: D5W/SOD CHL 0.45%/KCL 20MEQ 1,000 ML IV SCH (10:15)
[2025-03-20] MEDS ORDERED: HYDROmorphone HCL 2 MG/ML VL/or syr IV PRN ×2 (10:15→10:45)
--- NOTE | 2025-03-20 10:43 | DVHOP ---
DATE OF SURGERY: 03/20/2025 PREOPERATIVE DIAGNOSES: * Cholelithiasis. * Chronic cholecystitis. * Biliary colic. POSTOPERATIVE DIAGNOSES: * Cholelithiasis. * Chronic cholecystitis. * Biliary colic. SURGEON: Baldemar Hobson MD CUTTER HOT KNIFE: Spenser Hallman NP ANESTHESIA: General endotracheal. ANESTHESIOLOGIST: Dr. Au. PROCEDURES: * Laparoscopy. * Laparoscopic cholecystectomy. DESCRIPTION OF PROCEDURE: Under general endotracheal anesthesia with the patient's skin prepped and draped, a supraumbilical incision was made and Veress needle inserted into the peritoneal cavity by the hanging drop technique in order to establish pneumoperitoneum to 15 mmHg pressure by insufflation with carbon dioxide. With the abdomen fully distended, the needle was removed and replaced with a 5 mm trocar port through which a 0-degree viewing laparoscope was inserted and under direct vision, additional 5 and 10-mm ports inserted through the right anterior axillary line at the level of the umbilicus and through the subxiphoid skin in the midline respectively. Instrumentation was then introduced and laparoscopy was conducted revealing no obvious unexpected pathology on the sural surfaces visualized. The gallbladder was placed on tension. The cystic duct and cystic artery were identified, circumferentially dissected, skeletonized, and traced into the hepatocystic triangle so as to minimize the potential for an inadvertent injury to the common bile duct. The cystic duct and cystic artery were then divided close to the gallbladder again trying to attempt to avoid inadvertent injury to the common bile duct. The cystic duct and cystic artery were divided and subsequently, the gallbladder was resected from its liver bed by electrocautery and traction. The fully mobilized gallbladder was then placed into a specimen extraction bag and removed from the peritoneal cavity through the 10-mm port site. The right upper quadrant was profusely irrigated. The irrigant was aspirated. Hemostasis was meticulously inspected and accomplished. There was no evidence of bleeding from either the cholecystectomy site or from the port sites at the termination of the procedure. Instrumentation was removed. Pneumoperitoneum was evacuated. Fascial defect closed using 0 Vicryl. Wounds approximated using Monocryl sutures, Dermabond glue, and Steri-Strips. The patient remained stable throughout the procedure and left the operating room following an accurate needle and sponge counts. The patient's family, Mr. Александр Obregon, was thoroughly informed on his phone #[phone]. MD TRINA Rodriguez/JAY TID: [id number] RECEIPT: [id number]
[2025-03-20 10:58] LABS: Hepatitis B Surface Antigen Negative (Negative); Hepatitis C Antibody Negative (Negative)
[2025-03-20] MEDS: ACETAMINOPHEN IV 1000 MG/100ML (10MG/ML) IV ONE (11:02)
--- NOTE | 2025-03-20 15:12 | DVHPNRES ---
Progress Note Date Seen: Mar 20, 2025 Resident Creating Document: GENARO ROLDAN RESIDENT Medical Necessity Reason Pt with a Central, PICC or Fol: No Subjective Review of Systems Patient is 59 years old female with past medical history of hypertension, diabetes mellitus type 2, hyperlipidemia, asthma, GERD came with a complaint of abdominal pain. As per patient she started having abdominal pain 3 days before, sudden onset, but more on right upper abdomen and epigastric region, 10/10, radiating to the back and upper chest, Unasyn, relieved with some pain medication. Pain was associated nausea and vomiting 3 times, no blood, patient reported feeling chilled but no record of temperature. Patient denied any dysuria, constipation or diarrhea, shortness of breaths or chest pain, acute joint redness or swelling. Initial lab workup revealed leukocytosis with WBC 11.1, sodium 133, potassium 3.3, serum creatinine 1.13, BUN 15, GFR 55, magnesium 1.5, bilirubin 1.6, alkaline phosphatase 131, AST/ALT with a normal limit, hemoglobin A1c 9.4. CT abdomen and pelvis revealed- Heterogeneous appearance of the liver. 3.2 cm left adrenal nodule likely reflecting an adenoma. Nonspecific bilateral perinephric fat stranding.Distended gallbladder. Ultrasound of the abdomen revealed-Multiple gallstones with no gallbladder wall thickening. Negative sonographic lopez's sign. No dilated common bile duct. Right kidney measures 9.84 cm with no hydronephrosisMildly hyperechoic area in the right lobe of the liver measuring 7.39 by 4.36 x 6.36 cm. This area appears avascular in relation to the surrounding parenchyma. May represent an area of fatty infiltration. Past surgical history: Lumbar spinal surgery, benign tumor removed from breast, Family history: Liver cancer in mother Personal history smokes 3 cigarettes per day, quit drinking 3 months ago, denies drug use, Allergy- iodine, morphine, penicillin Patient was seen today at the bedside. Patient Cardiovascular- deny acute chest pain or shortness of breath or cough or palpitation Respiratory denies cough or short of breath or wheezing Gastrointestinal- denies any rectal bleeding, nausea or vomiting Musculoskeletal-denies acute joint swelling or tenderness or redness Neurological- denies acute dysarthria, dysphagia, change in vision Psychiatry- denies depression or SI or HI Skin- denies acute rash or purpura Patient was seen today at bedside, labs and chart reviewed. Patient had laparoscopic cholecystectomy today, postoperative mild pain. Patient on pain medication, ordered Dilaudid. Serum creatinine trending down. Objective vital signs Vital Sign Date Time Temp Pulse Resp B/P (MAP) Pulse Ox O2 Delivery O2 Flow Rate FiO2 03/20/25 12:34 97.4 60 16 162/71 (101) 91 97.4 03/20/25 10:33 Room Air 03/20/25 10:33 100 03/20/25 08:00 0 Total Intake and Output 03/19/25 03/19/25 03/20/25 15:00 23:00 07:00 Intake Total 200 ml 1300 ml Balance 200 ml 1300 ml medications Current Medications Medications Dose Ordered Sig/Arian Route Start Time Stop Time Status Last Admin Dose Admin Docusate Sodium 100 mg BIDPRN PRN PO 03/18/25 22:00 Morphine Sulfate 2 mg Q4HPRN PRN IV 03/18/25 22:00 Ketorolac Tromethamine 15 mg Q6HPRN PRN IV 03/19/25 02:30 03/24/25 02:29 03/20/25 02:30 15 MG Pantoprazole Sodium 40 mg DAILY IV 03/19/25 10:00 03/19/25 11:03 40 MG Metronidazole 100 ml @ 100 mls/hr Q8H IV 03/19/25 12:00 03/20/25 13:08 100 MLS/HR Ciprofloxacin 200 ml @ 200 mls/hr Q8H IV 03/19/25 12:00 03/20/25 13:02 200 MLS/HR Aspirin 81 mg DAILY PO 03/19/25 10:00 Enalapril Maleate 2.5 mg DAILY PO 03/19/25 10:00 Nifedipine 30 mg BID PO 03/19/25 10:00 Gabapentin 400 mg BID PO 03/19/25 10:00 03/19/25 21:08 400 MG Atorvastatin Calcium 40 mg HS PO 03/19/25 22:00 03/19/25 21:07 40 MG Heparin Sodium (Porcine) 5,000 units Q12HR SC 03/19/25 10:00 Insulin Glargine 20 units BID@0700,2200 SC 03/19/25 22:00 03/19/25 21:14 20 UNITS Lactated Ringer's 1,000 ml @ 110 mls/hr Q9H6M IV 03/19/25 14:30 03/20/25 09:19 110 MLS/HR Diagnostic Test (Pha) 1 strip Q6HR 03/19/25 18:00 03/20/25 12:27 1 STRIP Insulin Human Regular Q6HR SC 03/19/25 18:00 03/20/25 12:40 9 UNITS Dextrose 50 ml UD PRN IV 03/19/25 17:30 Hydromorphone HCl 0.5 mg Q10M PRN IV 03/20/25 10:45 03/20/25 11:26 Cancel Potassium Chloride/Dextrose/ Sod Cl 1,000 ml @ 120 mls/hr Q8H20M IV 03/20/25 10:15 Hydromorphone HCl 1 mg Q3HPRN PRN IV 03/20/25 10:15 Hold Ondansetron HCl 4 mg Q4HPRN PRN IV 03/20/25 10:15 Examination General examination- awake, alert, oriented HEENT- PEERLA, no acute nasal discharge Cardiovascular- S1-S2 audible, rate and rhythm regular, no murmur Respiratory- CTAB, no wheeze or rhonchi Gastrointestinal-mild diffuse abdominal tenderness+, bowel sound+. Nondistended Musculoskeletal-no acute joint swelling or tenderness or redness Lower extremity- Neurological- cranial nerves intact, no acute dysarthria or dysphagia Psychiatry- denies depression or SI or HI Skin- no acute rash or purpura laboratory and microbiology Laboratory Tests 03/20/25 07:18 Test 03/20/25 07:18 Range/Units Serum Glucose 170 H 74-106 mg/dL Problem List/Assessment/Plan Problem List/Assessment/Plan Assessment and plan # Acute abdominal pain likely due to acute cholecystitis -rule out acute pancreatitis/peptic ulcer disease/GERD/vaginal pneumonia Rule out aortic dissection - CT abdomen and pelvis revealed- Heterogeneous appearance of the liver. 3.2 cm left adrenal nodule likely reflecting an adenoma. Nonspecific bilateral perinephric fat stranding.Distended gallbladder. -Ultrasound of the abdomen revealed-Multiple gallstones with no gallbladder wall thickening. Negative sonographic lopez's sign. No dilated common bile duct. May represent an area of fatty infiltration. -HIDA scan-Patent cystic duct. -continue ciprofloxacin and metronidazole as prescribed -continue pantoprazole IV 41 daily -status post cholecystectomy - MRI of the abdomen without contrast-A 3.3 cm left adrenal adenoma.Cholelithiasis. Pancreatic tail cystic lesion measuring 8 mm - ultrasound of the aorta -no evidence of abdominal aortic aneurysm -clear liquid diet # JP likely due to VMN -improving -continue IV fluid as prescribed # Hypertension -resumed home medication nifedipine and enalapril # Diabetes mellitus type 2 -continue insulin Lantus as prescribed -insulin sliding scale mild as prescribed # hyperlipidemia -atorvastatin 40 mg p.o. q.h.s. # GERD -continue pantoprazole 40 mg IV daily # transaminitis -monitor hepatic panel # hypokalemia mild -replenished -monitor BMP # hyponatremia mild -monitor BMP # Asthma no acute exacerbation -nebulization PRN #3.3 cm left adrenal adenoma -no acute symptom -follow up outpatient with the primary care physician #Pancreatic tail cystic lesion measuring 8 mm -follow up outpatient with the primary care physician Goals of care, Code status full code ; discussed with >15 minutes PUD prophylaxis: Pantoprazole DVT prophylaxis: Heparin Plan discussed with Dr. Doran , nursing staff, Total time spent on patient evaluation, chart review, assessment and plan, discussion discussion >35 minutes Plan discussed with: Patient, Other (RN) My Orders My Orders Orders - EGNARO ROLDAN Procedure Category Date Status Time Glucose Blood PHA 03/19/25 In Process (Accu-Chek Comfort 18:00 Insulin R (Human) PHA 03/19/25 In Process (Insulin R) 18:00 Dextrose 50% Syringe PHA 03/19/25 In Process 17:30 Electrocardigram EKG 03/20/25 Logged 06:10 Date of Service: Mar 20, 2025 Billing Provider: OSCAR RODRIGUEZ MD Common Visit Codes: [id number] INP/OBS CARE(HIGH) GENARO ROLDAN Mar 20, 2025 15:12 OSCAR RODRIGUEZ MD Mar 23, 2025 01:28
[2025-03-20] MEDS: HYDROmorphone HCL 2 MG/ML VL/or syr IV PRN (18:51)
[2025-03-21] MEDS ORDERED: HYDROmorphone HCL 2 MG/ML VL/or syr IV ONE (00:45)
[2025-03-21 01:00] VITALS: BP 152/80; PULSE 62; RESP 22; TEMP 97.2; O2SAT 100
[2025-03-21] MEDS: HYDROmorphone HCL 2 MG/ML VL/or syr IV PRN (01:21)
[2025-03-21 05:00] VITALS: BP 122/79; PULSE 61; RESP 18; TEMP 98.3; O2SAT 98
[2025-03-21 06:27] LABS: Hematocrit 29.4 % (36.0-46.0); Hemoglobin 9.6 g/dL (12.2-16.2); Mean Corpuscular Hemoglobin 27.5 pg (28.0-32.0); Mean Corpuscular Volume 84.3 fL (80.0-100.0); Nucleated Red Blood Cells % 0.0 %
[2025-03-21 06:45] LABS: Alanine Aminotransferase 25 U/L (7-40); Albumin 3.6 g/dL (3.2-4.8); Alkaline Phosphatase 87 U/L (46-116); Anion Gap 11 (5-15); BUN/Creatinine Ratio 17.8 (10.0-20.0); Bilirubin, Total 0.7 mg/dL (0.2-1.0); Blood Urea Nitrogen 19 mg/dL (9-23); Calcium 9.2 mg/dL (8.7-10.4); Carbon Dioxide 23 mmol/L (20-31); Chloride 106 mmol/L (98-107); Magnesium 1.7 mg/dL (1.6-2.6); Potassium 3.7 mmol/L (3.5-5.1); Sodium 140 mmol/L (136-145); Total Protein 5.8 g/dL (5.7-8.2)
[2025-03-21 06:58] LABS: Glucose 135 mg/dL (74-106)
[2025-03-21] MEDS ORDERED: MAGNESIUM SULFATE 1GM/100ML 100 ML IV SCH (08:00)
[2025-03-21 09:07] VITALS: BP 140/75; PULSE 57; RESP 17; TEMP 98; O2SAT 97
--- NOTE | 2025-03-21 10:29 | DVHPN2 ---
Subjective Date Seen: Mar 21, 2025 Post op day Post op day: 1 Patient reports: No new complaints Nursing reports: No new complaints General: Normal HNT: Normal Cardiovascular: Normal Respiratory: Normal Gastrointestinal: Normal Genitourinary: Normal Musculoskeletal: Normal Neurological: Normal Objective Vitals Vital Sign Date Time Temp Pulse Resp B/P (MAP) Pulse Ox O2 Delivery O2 Flow Rate FiO2 03/21/25 09:07 98.0 57 17 140/75 (96) 97 98.0 03/20/25 20:00 Room Air* 0 21 Total Intake and Output 03/20/25 03/20/25 03/21/25 15:00 23:00 07:00 Intake Total 400 ml 1880 ml 580 ml Balance 400 ml 1880 ml 580 ml Medications Current Medications Medications Dose Ordered Sig/Arian Route Start Time Stop Time Status Last Admin Dose Admin Docusate Sodium 100 mg BIDPRN PRN PO 03/18/25 22:00 Morphine Sulfate 2 mg Q4HPRN PRN IV 03/18/25 22:00 Ketorolac Tromethamine 15 mg Q6HPRN PRN IV 03/19/25 02:30 03/24/25 02:29 03/20/25 21:14 15 MG Pantoprazole Sodium 40 mg DAILY IV 03/19/25 10:00 03/19/25 11:03 40 MG Metronidazole 100 ml @ 100 mls/hr Q8H IV 03/19/25 12:00 03/21/25 04:03 100 MLS/HR Ciprofloxacin 200 ml @ 200 mls/hr Q8H IV 03/19/25 12:00 03/21/25 04:02 200 MLS/HR Aspirin 81 mg DAILY PO 03/19/25 10:00 Enalapril Maleate 2.5 mg DAILY PO 03/19/25 10:00 Nifedipine 30 mg BID PO 03/19/25 10:00 03/20/25 22:13 30 MG Gabapentin 400 mg BID PO 03/19/25 10:00 03/20/25 20:59 400 MG Atorvastatin Calcium 40 mg HS PO 03/19/25 22:00 03/20/25 20:59 40 MG Heparin Sodium (Porcine) 5,000 units Q12HR SC 03/19/25 10:00 Insulin Glargine 20 units BID@0700,2200 SC 03/19/25 22:00 03/21/25 06:27 20 UNITS Diagnostic Test (Pha) 1 strip Q6HR 03/19/25 18:00 03/21/25 06:22 1 STRIP Insulin Human Regular Q6HR SC 03/19/25 18:00 03/20/25 23:38 15 UNITS Dextrose 50 ml UD PRN IV 03/19/25 17:30 Hydromorphone HCl 0.5 mg Q10M PRN IV 03/20/25 10:45 03/20/25 11:26 Cancel Potassium Chloride/Dextrose/ Sod Cl 1,000 ml @ 120 mls/hr Q8H20M IV 03/20/25 10:15 Ondansetron HCl 4 mg Q4HPRN PRN IV 03/20/25 10:15 Hydromorphone HCl 0.5 mg Q4HPRN PRN IV 03/21/25 00:45 03/21/25 06:22 0.5 MG General: Normal, Well developed Head/Eyes: Normal ENT: Normal Neck: Normal Lungs: Normal, Normal inspection Abdominal: Normal, Soft Labs and Microbiology Laboratory Tests 03/21/25 05:44 Test 03/21/25 05:44 Range/Units Serum Glucose 135 H 74-106 mg/dL Ass/Plan Labs and/or images reviewed: Labs reviewed by me, Image(s) reviewed by me Problem List Assessment and plan # Acute abdominal pain likely due to acute cholecystitis -rule out acute pancreatitis/peptic ulcer disease/GERD/vaginal pneumonia Rule out aortic dissection - CT abdomen and pelvis revealed- Heterogeneous appearance of the liver. 3.2 cm left adrenal nodule likely reflecting an adenoma. Nonspecific bilateral perinephric fat stranding.Distended gallbladder. -Ultrasound of the abdomen revealed-Multiple gallstones with no gallbladder wall thickening. Negative sonographic lopez's sign. No dilated common bile duct. May represent an area of fatty infiltration. -HIDA scan-Patent cystic duct. -continue ciprofloxacin and metronidazole as prescribed -continue pantoprazole IV 41 daily -status post cholecystectomy - MRI of the abdomen without contrast-A 3.3 cm left adrenal adenoma.Cholelithiasis. Pancreatic tail cystic lesion measuring 8 mm - ultrasound of the aorta -no evidence of abdominal aortic aneurysm -clear liquid diet # JP likely due to VMN -improving -continue IV fluid as prescribed # Hypertension -resumed home medication nifedipine and enalapril # Diabetes mellitus type 2 -continue insulin Lantus as prescribed -insulin sliding scale mild as prescribed # hyperlipidemia -atorvastatin 40 mg p.o. q.h.s. # GERD -continue pantoprazole 40 mg IV daily # transaminitis -monitor hepatic panel # hypokalemia mild -replenished -monitor BMP # hyponatremia mild -monitor BMP # Asthma no acute exacerbation -nebulization PRN #3.3 cm left adrenal adenoma -no acute symptom -follow up outpatient with the primary care physician #Pancreatic tail cystic lesion measuring 8 mm -follow up outpatient with the primary care physician Goals of care, Code status full code ; discussed with >15 minutes PUD prophylaxis: Pantoprazole DVT prophylaxis: Heparin Plan discussed with Dr. Doran , nursing staff, Total time spent on patient evaluation, chart review, assessment and plan, discussion discussion >35 minutes Assessment/Plan no new complaints doing well labs and notes reviewed passing gas tolerating diet Plan: follow up in surgery clinic in two weeks ok to discharge per surgery point of view Prognosis: Good Plan discussed with patient, Dr. Hobson Visit Coding Surgery Date of Service if different f: Mar 21, 2025 Billing Provider: SARAI HOBSON MD Surgery Visit Codes: [id number] INP/OBS CARE(HIGH) MARTHA ALEXIS DRAW FRAME OPERATOR Mar 21, 2025 10:28
--- NOTE | 2025-03-21 11:17 | DVHDSRES ---
Discharge Summary Date of Admission Resident Creating Document: PATT SPARKS RESIDENT Mar 18, 2025 at 21:55 Date of Discharge: Mar 21, 2025 Admitting Diagnosis Right upper quadrant pain Labs/Diagnostic Data: Laboratory Results Test 03/21/25 06:12 03/21/25 05:44 03/19/25 11:20 03/19/25 04:50 POC Glucose 122 mg/dl (70-106) White Blood Count 16.2 10^3/uL (4.4-10.8) Red Blood Count 3.48 10^6/uL (4.0-5.20) Hemoglobin 9.6 g/dL (12.2-16.2) Hematocrit 29.4 % (36.0-46.0) Mean Corpuscular Volume 84.3 fL (80.0-100.0) Mean Corpuscular Hemoglobin 27.5 pg (28.0-32.0) Mean Corpuscular Hemoglobin Concent 32.7 g/dL (32.0-36.0) Red Cell Distribution Width 14.9 % (11.8-14.3) Platelet Count 254 10^3/uL (140-450) Mean Platelet Volume 9.8 fL (6.9-10.8) Neutrophils (%) (Auto) 81.9 % (37.0-80.0) Lymphocytes (%) (Auto) 9.6 % (10.0-50.0) Monocytes (%) (Auto) 8.3 % (0.0-12.0) Eosinophils (%) (Auto) 0.1 % (0.0-7.0) Basophils (%) (Auto) 0.1 % (0.0-2.0) Neutrophils # (Auto) 13.3 10 ^3/uL (1.6-8.6) Lymphocytes # (Auto) 1.6 10 ^3/uL (0.4-5.4) Monocytes # (Auto) 1.3 10 ^3/uL (0-1.3) Eosinophils # (Auto) 0 10 ^3/uL (0-0.8) Basophils # (Auto) 0 10 ^3/uL (0-0.2) Nucleated Red Blood Cells 0.0 % Sodium Level 140 mmol/L (136-145) Potassium Level 3.7 mmol/L (3.5-5.1) Chloride Level 106 mmol/L (98-107) Carbon Dioxide Level 23 mmol/L (20-31) Anion Gap 11 (5-15) Blood Urea Nitrogen 19 mg/dL (9-23) Creatinine 1.07 mg/dL (0.550-1.02) Glomerular Filtration Rate Calc 59 mL/min (>90) BUN/Creatinine Ratio 17.8 (10.0-20.0) Serum Glucose 135 mg/dL (74-106) Calcium Level 9.2 mg/dL (8.7-10.4) Magnesium Level 1.7 mg/dL (1.6-2.6) Total Bilirubin 0.7 mg/dL (0.2-1.0) Aspartate Amino Transferase (AST) 41 U/L (13-40) Alanine Aminotransferase (ALT) 25 U/L (7-40) Alkaline Phosphatase 87 U/L (46-116) Total Protein 5.8 g/dL (5.7-8.2) Albumin 3.6 g/dL (3.2-4.8) Vitamin B12 Level 834 pg/mL (211-911) Vitamin D 25-Hydroxy 11.9 ng/mL (30.0-100) Folic Acid 13.49 ng/mL (>5.38) Thyroid Stimulating Hormone (TSH) 0.97 uIU/mL (0.55-4.78) Prothrombin Time 11.1 sec (9.3-11.8) Prothrombin Time INR 1.05 (0.9-1.15) Hepatitis B Surface Antigen Negative (Negative) Hepatitis C Antibody Negative (Negative) Test 03/18/25 12:06 03/18/25 11:42 Urine Color Light-yellow (Yellow) Urine Clarity Clear (Clear) Urine pH 7.0 (5.0-9.0) Urine Specific Cody 1.021 (1.001-1.035) Urine Protein 1+ (Negative) Urine Ketones 3+ (Negative) Urine Blood Negative /uL (Negative) Urine Nitrite Negative (Negative) Urine Bilirubin Negative (Negative) Urine Urobilinogen Normal mg/dL (Negative) Urine Leukocyte Esterase Negative /uL (Negative) Urine RBC 1 /hpf (0 - 4) Urine Microscopic WBC < 1 /HPF (0-5) Urine Squamous Epithelial Cells Few /hpf (<5) Urine Bacteria None seen /hpf (None Seen) Urine Yeast (Budding) Occasional /hpf (None Urine Glucose 3+ mg/dL (Normal) Hemoglobin A1c 9.4 % A1C (<5.7) Lipase 38 U/L (12-53) Other Laboratory Tests 03/21/25 05:44 Brief Hx & Hospital Course: Patient is 59 years old female with past medical history of hypertension, diabetes mellitus type 2, hyperlipidemia, asthma, GERD came with a complaint of abdominal pain. As per patient she started having abdominal pain 3 days before admission, sudden onset, but more on right upper abdomen and epigastric region, 10/10 in intensity, radiating to the back and upper chest, relieved with some pain medication. Pain was associated with nausea and vomiting 3 times, no blood. Patient also reported feeling chills but no record of temperature. Patient denied any dysuria, constipation or diarrhea, shortness of breath or chest pain. Initial lab workup revealed leukocytosis with WBC 11.1, sodium 133, potassium 3.3, serum creatinine 1.13, BUN 15, GFR 55, magnesium 1.5, bilirubin 1.6, alkaline phosphatase 131, AST/ALT with a normal limit, hemoglobin A1c 9.4. CT abdomen and pelvis revealed- Heterogeneous appearance of the liver. 3.2 cm left adrenal nodule likely reflecting an adenoma. Nonspecific bilateral perinephric fat stranding, Distended gallbladder, Ultrasound of the abdomen revealed-Multiple gallstones with no gallbladder wall thickening with Negative sonographic lopez's sign and no dilated common bile duct. Right kidney measures 9.84 cm with no hydronephrosis, mildly hyperechoic area in the right lobe of the liver measuring 7.39 by 4.36 x 6.36 cm. This area appears avascular in relation to the surrounding parenchyma. May represent an area of fatty infiltration. Surgical consult evaluated the patient and advised cholecystectomy, patient underwent laparoscopic cholecystectomy on 03/20/2025 with an uneventful postoperative course. She was seen by surgery on 03/21/2025 and was recommended to advance her diet and possibly discharge her home today if she tolerates it. These recommendations were discussed with the patient and she demonstrated understanding of the same, but after some time patient did not want to stay in the hospital any longer and wanted to leave against medical advice before we check if she is able to tolerate diet or not. She was explained that she will be discharged home if she tolerates diet but she wanted to go home right away and left AMA. Past surgical history: Lumbar spinal surgery, benign tumor removed from breast, Family history: Liver cancer in mother Personal history smokes 3 cigarettes per day, quit drinking 3 months ago, denies drug use Allergy- iodine, morphine, penicillin Physical examination could not be completed as the patient declined and left AMA. Goals of care discussed with the patient for 20 minutes; full code. Counseled on tobacco use cessation for 16 minutes. Case discussed with Dr. Martinez Consults/Reason for consult Surgery for acute cholecystitis Operations or Procedures Exam: CT CT AB PEL WO CON-NO ORAL OR IV History: Abdominal pain IMPRESSION: 1. Heterogeneous appearance of the liver. CT of the abdomen pelvis with IV contrast is strongly recommended. Differential diagnostic considerations include but not limited to laceration, fatty infiltration or mass. 2. 3.2 cm left adrenal nodule likely reflecting an adenoma. 3. Nonspecific bilateral perinephric fat stranding. 4. Distended gallbladder. HS:Y ----- EXAM: XY CHEST PORTABLE Indication: Acute abdominal pain IMPRESSION: No acute cardiopulmonary disease. ------ INDICATION: Possible liver laceration, distended gallbladder TECHNIQUE: Multiple real-time sonographic images of the abdomen were obtained. COMPARISON: MRI ABDOMEN W on DOS: 10/21/23, CT ABD/PEL on DOS: 10/19/23, CT ABD/PEL on DOS: 10/19/23 IMPRESSION: 1. Multiple gallstones with no gallbladder wall thickening. Negative sonographic lopez's sign. No dilated common bile duct. 2. Right kidney measures 9.84 cm with no hydronephrosis 3. Mildly hyperechoic area in the right lobe of the liver measuring 7.39 by 4.36 x 6.36 cm. This area appears avascular in relation to the surrounding parenchyma. May represent an area of fatty infiltration if of clinical concern recommend CT scan of the abdomen with IV contrast. ------- Procedure: NM NM HIDA SCAN Exam Date: 03/19/2025 10:02 AM Clinical History: rule out Acute cholecystitis Comparison Study: None Nuclear Medicine Hepatobiliary Scan. Technique: Following the intravenous administration of 6 mCi of technetium 99m labeled Choletec multiple planar abdominal planar images were obtained in anterior projection in 1 minute intervals for 27 minutes . Right lateral images were obtained at 30 minutes after injection. Findings: The liver appears grossly normal in size. There is no abnormal persistence of the cardiac or blood pool activity. There is prompt visualization of the gallbladder and excretion of activity into the small bowel. Impression: Patent cystic duct. ULTRASOUND AORTIC CLINICAL INDICATION: Rule out aortic dissection due to abdominal pain IMPRESSION: 1. no evidence for abdominal aortic aneurysm. ------- PROCEDURE: MRI MRI ABDOMEN NO CONTRAST Indication: LIVER MASS/ NO CONTRAST LABS OFF..ABNORMAL CT COMPARISON: 03/18/2025 TCHNIQUE: Multiplanar multisequence images of the brain are obtained. FINDINGS: Limited evaluation without contrast. Examination degraded by motion Left adrenal nodule measuring 3.3 cm. This drops signal on out of phase imaging. spleen unremarkable. Pancreatic tail cystic lesion measuring 8 mm. Kidneys demonstrate no hydronephrosis. Cholelithiasis. Normal caliber common bile duct measuring 3 mm. No T2 hyperintense lesions in the liver seen. Hepatic steatosis Stomach is relatively nondistended. Colonic diverticula. Lumbosacral fusion hardware. IMPRESSION: Limited evaluation without contrast. Examination also degraded by motion. No T2 hyperintense lesions within the liver. No discernible hepatic mass. Recommend multiphasic MRI abdomen to further evaluate. Hepatic steatosis. A3.3 cm left adrenal adenoma. Cholelithiasis. Pancreatic tail cystic lesion measuring 8 mm. Differential considerations include cyst, pseudocyst, IPMN, cystic neoplasm. Recommend MRI abdomen with and without contrast to further evaluate. Other findings as described. DATE OF SURGERY: 03/20/2025 PREOPERATIVE DIAGNOSES: * Cholelithiasis. * Chronic cholecystitis. * Biliary colic. POSTOPERATIVE DIAGNOSES: * Cholelithiasis. * Chronic cholecystitis. * Biliary colic. SURGEON: Baldemar Hobson MD INLETTER: Spenser Hallman NP ANESTHESIA: General endotracheal. ANESTHESIOLOGIST: Dr. Au. PROCEDURES: * Laparoscopy. * Laparoscopic cholecystectomy. DESCRIPTION OF PROCEDURE: Under general endotracheal anesthesia with the patient's skin prepped and draped, a supraumbilical incision was made and Veress needle inserted into the peritoneal cavity by the hanging drop technique in order to establish pneumoperitoneum to 15 mmHg pressure by insufflation with carbon dioxide. With the abdomen fully distended, the needle was removed and replaced with a 5 mm trocar port through which a 0-degree viewing laparoscope was inserted and under direct vision, additional 5 and 10-mm ports inserted through the right anterior axillary line at the level of the umbilicus and through the subxiphoid skin in the midline respectively. Instrumentation was then introduced and laparoscopy was conducted revealing no obvious unexpected pathology on the sural surfaces visualized. The gallbladder was placed on tension. The cystic duct and cystic artery were identified, circumferentially dissected, skeletonized, and traced into the hepatocystic triangle so as to minimize the potential for an inadvertent injury to the common bile duct. The cystic duct and cystic artery were then divided close to the gallbladder again trying to attempt to avoid inadvertent injury to the common bile duct. The cystic duct and cystic artery were divided and subsequently, the gallbladder was resected from its liver bed by electrocautery and traction. The fully mobilized gallbladder was then placed into a specimen extraction bag and removed from the peritoneal cavity through the 10-mm port site. The right upper quadrant was profusely irrigated. The irrigant was aspirated. Hemostasis was meticulously inspected and accomplished. There was no evidence of bleeding from either the cholecystectomy site or from the port sites at the termination of the procedure. Instrumentation was removed. Pneumoperitoneum was evacuated. Fascial defect closed using 0 Vicryl. Wounds approximated using Monocryl sutures, Dermabond glue, and Steri-Strips. The patient remained stable throughout the procedure and left the operating room following an accurate needle and sponge counts. The patient's family, Mr. Александр Obregon, was thoroughly informed on his phone #[phone]. Baldemar Hobson MD PF/EKT Condition at Discharge: Undetermined (Left AMA) Final Diagnosis/Problems List Acute abdominal pain likely due to acute cholecystitis s/p lap cholecystectomy JP likely due to VMN Hypertension,uncontrolled Diabetes mellitus type 2,controlled hyperlipidemia GERD transaminitis hypokalemia mild,repleted hyponatremia mild,resolved Asthma, no acute exacerbation 3.3 cm left adrenal adenoma Pancreatic tail cystic lesion measuring 8 mm Tobacco use cessation Discharge Disposition: AMA Discharge Instruct/Medications Diet: See Comment Diet comment: Left AMA Activity: See Comment Activity comment: Left AMA Follow Up/Referral: Left AMA Medications: Left AMA Scheduled Aspirin (Asa), 81 MG PO DAILY Atorvastatin Calcium (Atorvastatin Calcium), 10 MG PO HS Enalapril Maleate (Enalapril Maleate), 2.5 MG PO DAILY, (Reported) Gabapentin (Gabapentin), 800 MG PO BID, (Reported) Hydrocodone-Acetaminophen (Pine 10-325 mg), 2 TAB PO PRN, (Reported) Nifedipine (Nifedipine Er), 1 TAB PO BID, (Reported) Pantoprazole Sodium Sesquihydr (Pantoprazole Sodium), 40 MG PO DAILY Quetiapine Fumerate (Seroquel), HS, (Reported) Tizanidine Hydrochloride (Zanaflex), 2 TAB PO TID, (Reported) [Prozac], 20 MG PO DAILY, (Reported) Discharge Statement: "Patient was advised to return to the ER or call 911 if any headaches, dizziness, shortness of breath, chest pain, abdominal pain, bleeding, fevers, or worsening of medical condition. Patient was counseled about treatment plan, medications, possible side effects, patientverbalized understanding. All questions were answered to the best of my ability. This discharge took greater then 30 minutes in planning, reviewing documentation, counseling the patient, and discussing with other team members." ASSESSMENT ASSESSMENT Assessment Addendum Addendum Addendum I was physically present for the valenzuela portions of the service provided to patient by THE RESIDENT. I have reviewed the documentation, discussed the case with resident and agree with the resident's documentation except as noted. Also the patient's clinical case was discussed with the patient's nurse. This medical document was created using an electronic medical record system with computerized dictation system. Although this document has been carefully reviewed, there might still be some phonetic and typographical errors. These areas are purely typographical due to imperfections of the software programs, and do not reflect any compromise in the patient's medical care. Late signature. Date of Service: Mar 21, 2025 Billing Provider: KING MARTINEZ MD Common Visit Codes: 50606-QKQ/OBS DISCH DAY >30min Secondary Visit Codes: 48631-GHVSI CHNG SMOKING >10MIN (16 minutes), 16963- ADVANCED CARE PLAN 30 MINUTES (20 minutes) PATT SPARKS RESIDENT Mar 21, 2025 11:17 PRANAY CRANE RESIDENT Mar 21, 2025 14:16 KING MARTINEZ MD Mar 22, 2025 06:15
--- NOTE | 2025-03-21 12:16 | ECG ---
[facility] Test Date: 2025-03-20 Test Time: 06:01:16 Pat Name: REX BHAKTA Department: Respiratoy Room: 0216 A Gender: F Flavor Room Worker: KARLA : 1965 Requested By: GENARO ROLDAN Order Number: [id number] Reading MD: Feliberto Conde Measurements Intervals [place]son Rate: 50 P: 22 GA: 200 QRS: 11 QRSD: 86 T: 39 QT: 471 QTc: 430 Interpretive Statements Sinus rhythm Probable left atrial enlargement Electronically Signed On 03-23-2025 10:13:14 PDT by Feliberto Conde Please click the below link to view image of tracing.
== END 2025-03-21 09:27 | disposition left against medical advice (07) | DRG 417 ==
LOC: EDUNIT# 09:23 → EDBD 09:23 → ER 09:23 → OVERFLOW 21:55 → TELE-CENTR 03-19 01:16 → CENTRAL 03-19 15:17
PROVIDERS: ADMIT Student in an Organized Health Care Education/Training Program; ATTEND Student in an Organized Health Care Education/Training Program
PROC: 0FT44ZZ Resection of Gallbladder, Percutaneous Endoscopic Approach (ICD-10-PCS; principal; 2025-03-20 09:32)
DX: K80.12 Calculus of gallbladder with acute and chronic cholecystitis without obstruction (principal); N17.0 Acute kidney failure with tubular necrosis; E87.1 Hypo-osmolality and hyponatremia; K86.2 Cyst of pancreas; E83.42 Hypomagnesemia; E87.6 Hypokalemia; K21.9 Gastro-esophageal reflux disease without esophagitis; E11.65 Type 2 diabetes mellitus with hyperglycemia; E78.5 Hyperlipidemia, unspecified; J45.909 Unspecified asthma, uncomplicated; D35.02 Benign neoplasm of left adrenal gland; K82.8 Other specified diseases of gallbladder; I12.9 Hypertensive chronic kidney disease with stage 1 through stage 4 chronic kidney disease, or unspecified chronic kidney disease; N18.9 Chronic kidney disease, unspecified; E11.22 Type 2 diabetes mellitus with diabetic chronic kidney disease; R74.01 Elevation of levels of liver transaminase levels; Z53.29 Procedure and treatment not carried out because of patient's decision for other reasons; Z88.5 Allergy status to narcotic agent; Z88.2 Allergy status to sulfonamides; Z91.041 Radiographic dye allergy status; Z80.8 Family history of malignant neoplasm of other organs or systems; Z83.3 Family history of diabetes mellitus; Z82.49 Family history of ischemic heart disease and other diseases of the circulatory system; Z71.6 Tobacco abuse counseling; Z72.0 Tobacco use
CPT/HCPCS: 36415; 71045; 74176; 74181; 76705; 76775; 78226; 80048; 80053; 81001; 82247; 82306; 82607; 82746; 82962; 83036; 83690; 83735; 84443; 85025; 85610; 86803; 86850; 86900; 86901; 87340; 93005; 96372; 96374; 96375; G0378; J0131; J1100; J1815; J1885; J2250; J2405; J2470; J3490